=== PATIENT | male | born 1980 | race Caucasian/White ===

== ENCOUNTER → 2017-01-19 | Outpatient (CLI) | payer OTHER ==
[~2017-01-19] MED LIST: CETI10TA84 PO; HYDR-5688 PO; PHEN-876 PO; SERT50TA PO
--- NOTE | 2017-01-19 10:29 | DIAGNOSTIC IMAGING REPORT ---
KUB CLINICAL HISTORY: Nephrolithiasis. COMPARISON STUDY: KUB June 20, 2016. FINDINGS: Pelvic calcifications are unchanged and likely reflect phleboliths. No urinary calculi are identified although the right renal shadow is partially obscured by stool. Bowel gas pattern is normal. IMPRESSION: No urinary calculi identified. Right renal shadow partially obscured by stool. Electronically signed by: Obey David M.D. 01/19/2017 10:28 AM Dictated Date/Time: 01/19/2017 10:26 AM
== END | disposition home or self-care (01) ==
LOC: C.RAD 10:00
PROVIDERS: ATTEND Nurse Practitioner Family
DX: N20.0 Calculus of kidney (principal)

== ENCOUNTER 2017-06-12 13:48 | Observation (INO) | payer OTHER ==
[~2017-06-12] VITALS: Ht 172.7 cm; Wt 86.1 kg
[~2017-06-12 13:48] MED LIST changes: -CETI10TA84 PO; -HYDR-5688 PO; -PHEN-876 PO
[2017-06-12] MEDS ORDERED: SODIUM CHLORIDE 0.9% 1000ML 300 ML IV STA (14:26)
[2017-06-12] MEDS ORDERED: MoRPHine SULFATE 4 MG/ML 1 ML CARP\\VIAL IV STA (14:39)
[2017-06-12] MEDS ORDERED: CETI10TA84 PO (14:51)
[2017-06-12 15:12] LABS: URINE APPEARANCE CLEAR (CLEAR); URINE BILIRUBIN NEG (NEG); URINE COLOR YELLOW; URINE EPITHELIAL CELL AUTO 0-5 /lpf (0-5); URINE NITRITE NEG (NEG); URINE SPECIFIC GRAVITY 1.027 (1.000-1.030); UROBILINOGEN NEG (NEG); ZZUR CULT IF INDIC CLEAN CATCH NO
[2017-06-12 15:16] LABS: BASO % 0.2 %; BASO ABS # 0.02 K/uL (0-0.2); COMPLETE YES; EOS % 0.4 %; HEMATOCRIT 43.9 % (42-52); IG% 0.3 %; LYMPH % 23.4 %; LYMPH ABS # 2.31 K/uL (1.2-3.4); MEAN CELL VOLUME 93.6 fL (80-100); MEAN CORPUSCULAR HGB CONC 37.4 g/dl (32-36); MEAN PLATELET VOLUME 9.2 fL (7.4-10.4); MONO % 7.7 %; PLATELET COUNT 177 K/uL (130-400); RED BLOOD COUNT 4.69 M/uL (4.7-6.1); WHITE BLOOD COUNT 9.87 K/uL (4.8-10.8)
[2017-06-12 15:34] LABS: MANUAL MICROSCOPIC REQUIRED? NO; REVIEW REQ? YES
[2017-06-12 15:34] LABS: CREATININE 0.9 mg/dl (0.60-1.40)
[2017-06-12 15:35] LABS: BUN/CREATININE RATIO 10.6 (10-20); CALCIUM 8.9 mg/dl (8.5-10.1); POTASSIUM 3.6 mmol/L (3.5-5.1)
[2017-06-12 15:37] LABS: ALB/GLOB RATIO 1.1 (0.9-2)
--- NOTE | 2017-06-12 16:21 | EMERGENCY ROOM VISIT NOTE ---
History First contact with patient: 14:30 Chief Complaint: ABDOMINAL PAIN Stated Complaint: SHARP PAIN IN LOWER AB AREA;BLOOD IN STOOL Nursing Triage Summary: "Wicked, wicked stomach pains. Im unable to sleep. Dark blood coming out in my stool." Been going on for 4 months, "tried to take care of it myself." Denies lightheadedness or dizziness. History of Present Illness The patient is a 37 year old male who presents to the Emergency Room with complaints of intermittent sharp abdominal pains and intermittent diarrhea for the past 4 months. Patient states for the past 2 days he has had constant sharp pains in his lower abdomen and has had multiple bowel movements with red blood mixed in. He states he does not have a PCP, so has not been evaluated for this. He states that he had a severe bout of abdominal pain while he was at work today and his coworkers told him he should go to the ER. Patient states he has been taking Zantac for heartburn and stomach pains for the past several weeks. He has not tried any other medications for his pain or diarrhea. He does report family history of IBD and his sister has Crohn's disease. He denies any fevers or chills, nausea, vomiting, chest pain, shortness of breath, dizziness or syncope, hematemesis, constipation, dysuria or urinary frequency, hematuria, or rash. Review of Systems A complete 10 point review of systems was reviewed with the patient with pertinent positives and negatives as per history of present illness. All else were negative. Past Medical/Surgical History Medical Problems: (1) Appendicitis (2) Kidney stones Family History Diabetes mellitus Hypertension Kidney disease Seizures Social History Smoking Status: Never Smoker Alcohol Use: occasionally Housing Status: lives alone Occupation Status: employed Current/Historical Medications Scheduled Cetirizine (Zyrtec), 10 MG PO DAILY Allergies Coded Allergies: Penicillins (Unverified Allergy, Unknown, hives, 06/12/17) Physical Exam Vital Signs Date Time Temp Pulse Resp B/P (MAP) Pulse Ox O2 Delivery O2 Flow Rate FiO2 06/12/17 22:55 82 17 147/82 100 Nasal Cannula 2 06/12/17 22:45 79 14 151/90 100 Oxymask 10 06/12/17 22:35 102 16 171/76 99 Oxymask 10 06/12/17 22:26 36.7 95 18 160/83 97 Oxymask 10 06/12/17 20:39 77 20 126/76 99 06/12/17 18:42 80 20 135/68 100 06/12/17 15:16 94 18 139/77 98 Room Air 06/12/17 13:51 36.5 81 16 157/85 97 Room Air Physical Exam CONSTITUTIONAL: No acute distress. Mildly dehydrated. Poor overall hygiene. Alert and oriented X 4 with normal affect. HEENT: Normocephalic, atraumatic. Pupils equal, round and reactive to light, EOMI. TMs normal. Pharynx normal. Dry mucous membranes. NECK: Supple, full active range of motion without discomfort. RESPIRATORY: Clear to auscultation bilaterally with no wheezing, crackles, rhonchi or stridor. Equal expansion bilaterally. CARDIOVASCULAR: Regular rate and rhythm with no murmurs, rubs or gallops. Normal peripheral perfusion. No edema. GASTROINTESTINAL: Diffuse tenderness in the lower quadrants of the abdomen, most tender in the RLQ with some guarding, but no rebound tenderness. Upper abdomen is nontender. Soft, nondistended. Bowel sounds present in all quadrants. RAY reveals no rectal mass, hemorrhoids, fissures, and guaiac negative stool. Nurse was present for rectal exam. MUSCULOSKELETAL: Full range of motion of all joints without discomfort. INTEGUMENTARY: No rash or other significant dermatologic conditions noted. NEUROLOGIC: Cranial nerves II-XII grossly intact. No focal neurologic deficits noted. Medical Decision & Procedures ER Provider Diagnostic Interpretation: CT OF THE ABDOMEN AND PELVIS WITH CONTRAST CLINICAL HISTORY: Abdominal pain, blood in stool. Diarrhea. Family history of inflammatory bowel disease. COMPARISON STUDY: CT of the abdomen and pelvis May 30, 2016 and KUB January 19, 2017. TECHNIQUE: Following IV administration of 93 mL of Optiray-320, axial images of the abdomen and pelvis were obtained from the lung bases to the proximal femurs. Images were reviewed in the axial, sagittal, and coronal planes. IV contrast was administered without complication. A dose lowering technique was utilized adhering to the principles of ALARA. Oral contrast was administered. CT DOSE: 847.89 mGycm FINDINGS: The liver, spleen, adrenal glands and pancreas are normal. There are no several water attenuation renal lesions reflect cysts. The largest is a 1.4 cm lesion arising from the lower pole of the left kidney. This may have minimal peripheral layering calcification. There are numerous subcentimeter renal lesions which are too small to characterize. The caliber and wall thickness of small and large bowel are normal. The terminal ileum is normal. There is mild periappendiceal infiltration and moderate appendiceal wall thickening. There is no free air or abscess. Oral contrast fills the proximal to mid aspect of the appendix. There is no evidence for a bowel obstruction. There is no lymphadenopathy. No suspicious skeletal abnormalities are present. IMPRESSION: 1. Findings consistent with acute appendicitis. No free air or abscess. 2. Several renal cysts and numerous subcentimeter renal lesions which are too small to characterize. Laboratory Results 06/12/17 15:04 Red Blood Count 4.69, Mean Corpuscular Volume 93.6, Mean Corpuscular Hemoglobin 35.0, Mean Corpuscular Hemoglobin Concent 37.4, Mean Platelet Volume 9.2, Neutrophils (%) (Auto) 68.0, Lymphocytes (%) (Auto) 23.4, Monocytes (%) (Auto) 7.7, Eosinophils (%) (Auto) 0.4, Basophils (%) (Auto) 0.2, Neutrophils # (Auto) 6.71, Lymphocytes # (Auto) 2.31, Monocytes # (Auto) 0.76, Eosinophils # (Auto) 0.04, Basophils # (Auto) 0.02 06/12/17 15:04 Test 06/12/17 14:20 06/12/17 15:04 Urine Color YELLOW Urine Appearance CLEAR (CLEAR) Urine pH 6.0 (4.5-7.5) Urine Specific [place] 1.027 (1.000-1.030) Urine Protein NEG (NEG) Urine Glucose (UA) NEG (NEG) Urine Ketones NEG (NEG) Urine Occult Blood 1+ (NEG) Urine Nitrite NEG (NEG) Urine Bilirubin NEG (NEG) Urine Urobilinogen NEG (NEG) Urine Leukocyte Esterase NEG (NEG) Urine WBC (Auto) 0 /hpf (0-5) Urine RBC (Auto) 0-4 /hpf (0-4) Urine Hyaline Casts (Auto) 1-5 /lpf (0-5) Urine Epithelial Cells (Auto) 0-5 /lpf (0-5) Urine Bacteria (Auto) NEG (NEG) Urine Crystals CALCIUM OXALATE (NONE White Blood Count 9.87 K/uL (4.8-10.8) Red Blood Count 4.69 M/uL (4.7-6.1) Hemoglobin 16.4 g/dL (14.0-18.0) Hematocrit 43.9 % (42-52) Mean Corpuscular Volume 93.6 fL (80-100) Mean Corpuscular Hemoglobin 35.0 pg (25-34) Mean Corpuscular Hemoglobin Concent 37.4 g/dl (32-36) Platelet Count 177 K/uL (130-400) Mean Platelet Volume 9.2 fL (7.4-10.4) Neutrophils (%) (Auto) 68.0 % Lymphocytes (%) (Auto) 23.4 % Monocytes (%) (Auto) 7.7 % Eosinophils (%) (Auto) 0.4 % Basophils (%) (Auto) 0.2 % Neutrophils # (Auto) 6.71 K/uL (1.4-6.5) Lymphocytes # (Auto) 2.31 K/uL (1.2-3.4) Monocytes # (Auto) 0.76 K/uL (0.11-0.59) Eosinophils # (Auto) 0.04 K/uL (0-0.5) Basophils # (Auto) 0.02 K/uL (0-0.2) RDW Standard Deviation 41.6 fL (36.4-46.3) RDW Coefficient of Variation 12.3 % (11.5-14.5) Immature Granulocyte % (Auto) 0.3 % Immature Granulocyte # (Auto) 0.03 K/uL (0.00-0.02) Erythrocyte Sedimentation Rate 4 mm/hr (0-14) Anion Gap 5.0 mmol/L (3-11) Est Creatinine Clear Calc Drug Dose 121.1 ml/min Estimated GFR () 126.9 Estimated GFR (Non- 109.5 BUN/Creatinine Ratio 10.6 (10-20) Calcium Level 8.9 mg/dl (8.5-10.1) Total Bilirubin 0.7 mg/dl (0.2-1) Aspartate Amino Transf (AST/SGOT) 33 U/L (15-37) Alanine Aminotransferase (ALT/SGPT) 51 U/L (12-78) Alkaline Phosphatase 127 U/L (45-117) C-Reactive Protein 1.27 mg/dl (0-0.29) Total Protein 7.7 gm/dl (6.4-8.2) Albumin 4.0 gm/dl (3.4-5.0) Globulin 3.7 gm/dl (2.5-4.0) Albumin/Globulin Ratio 1.1 (0.9-2) Lipase 161 U/L (73-393) Medications Administered Medications (Trade) Dose Ordered Sig/Nicole Route Start Time Stop Time Status Last Admin Dose Admin Sodium Chloride 300 ml @ 999 mls/hr Q19M STAT IV 06/12/17 14:26 06/12/17 14:44 DC 06/12/17 15:12 999 MLS/HR Morphine Sulfate (MoRPHine SULFATE INJ) 4 mg NOW STAT IV 06/12/17 14:39 06/12/17 14:43 DC 06/12/17 15:12 4 MG Bupivacaine HCl/ Epinephrine Bitart (Sensorcaine/ Epinephrine 0.5% Mpf 1:200,000) 30 ml STK-MED ONCE .ROUTE 06/12/17 20:24 06/12/17 20:25 DC 06/12/17 22:00 20 ML Meperidine HCl (Demerol Inj) 50 mg STK-MED ONCE .ROUTE 06/12/17 22:34 06/12/17 22:35 DC 06/12/17 22:36 25 MG Fentanyl Citrate (Fentanyl Inj) 100 mcg STK-MED ONCE .ROUTE 06/12/17 22:47 06/12/17 22:48 DC 06/12/17 22:52 0.25 MCG Medical Decision CC: Patient presenting with complaint of abdominal pain and bloody stools Interpretation of Labs: No leukocytosis but elevated neutrophil count, no anemia , no significant left-sided normalities, normal renal function, normal liver enzymes and lipase, mildly elevated CRP. No UTI. Differential Diagnosis: Includes, but not limited to gastroenteritis, gastritis , cholecystitis, appendicitis, inflammatory bowel disease, infectious colitis, IBS, dehydration, GI bleed, among others. Medication Reconciliation: I attest that I have personally reviewed the patient' s current medication list. Vital signs review: I reviewed the patient's vital signs and interpret them as follows: T: Afebrile; BP: Hypertensive; HR: Within normal limits; RR: Within normal limits; Pulse Ox: Within normal limits on room air. Blood pressure screening: The patient was found to have an elevated blood pressure and was referred to their primary doctor for recheck and further treatment. Summary: Patient was evaluated at bedside, history of physical exam performed. Patient is alert and in no acute distress, nontoxic appearing, resting comfortably in the stretcher. Patient has diffuse lower abdominal tenderness on exam, most significantly in the right lower quadrant with some guarding. Digital rectal exam did not reveal any areas of tenderness or hemorrhoids, and was negative for occult blood. Orders were placed at bedside for labs including inflammatory markers to evaluate for IBD, UA, IV fluids for hydration, IV morphine for pain, CT abdomen and pelvis with contrast to evaluate for appendicitis, colitis, or other infectious etiology. Patient discussed with Dr. Britt, who agrees with my assessment and plan. Labs reviewed as above, mild neutrophilia and elevated CRP, no other significant abnormalities. CT abdomen/pelvis with findings positive for acute appendicitis. He has been NPO since 12 PM with exception of oral contrast. I discussed on the phone with Dr. Tenorio, Gen. surgery, regarding the patient' s finding of acute appendicitis. He agrees to evaluate the patient for possible surgery today. Patient reassessed multiple times throughout ED stay, he reports that his pain is improved after the morphine and he appears comfortable. Patient and his father were updated on all results and plan for admission and probable surgery for appendicitis. Patient verbalized understanding and is agreeable to this plan. Patient was stable at time of admission. Impression Primary Impression: Appendicitis Departure Information Dispostion Admitted as an inpatient Condition GOOD Referrals No Doctor, Assigned (PCP) Patient Instructions My [facility] Problem Qualifiers Primary Impression: Appendicitis Appendicitis type: acute appendicitis Acute appendicitis type: unspecified acute appendicitis type Qualified Codes: K35.80 - Unspecified acute appendicitis
[2017-06-12] MEDS ORDERED: OPTIRAY 320 IV PRN (16:30)
--- NOTE | 2017-06-12 17:43 | DIAGNOSTIC IMAGING REPORT ---
CT OF THE ABDOMEN AND PELVIS WITH CONTRAST CLINICAL HISTORY: Abdominal pain, blood in stool. Diarrhea. Family history of inflammatory bowel disease. COMPARISON STUDY: CT of the abdomen and pelvis May 30, 2016 and KUB January 19, 2017. TECHNIQUE: Following IV administration of 93 mL of Optiray-320, axial images of the abdomen and pelvis were obtained from the lung bases to the proximal femurs. Images were reviewed in the axial, sagittal, and coronal planes. IV contrast was administered without complication. A dose lowering technique was utilized adhering to the principles of ALARA. Oral contrast was administered. CT DOSE: 847.89 mGycm FINDINGS: The liver, spleen, adrenal glands and pancreas are normal. There are no several water attenuation renal lesions reflect cysts. The largest is a 1.4 cm lesion arising from the lower pole of the left kidney. This may have minimal peripheral layering calcification. There are numerous subcentimeter renal lesions which are too small to characterize. The caliber and wall thickness of small and large bowel are normal. The terminal ileum is normal. There is mild periappendiceal infiltration and moderate appendiceal wall thickening. There is no free air or abscess. Oral contrast fills the proximal to mid aspect of the appendix. There is no evidence for a bowel obstruction. There is no lymphadenopathy. No suspicious skeletal abnormalities are present. IMPRESSION: 1. Findings consistent with acute appendicitis. No free air or abscess. 2. Several renal cysts and numerous subcentimeter renal lesions which are too small to characterize. Electronically signed by: Obey David M.D. 06/12/2017 5:42 PM Dictated Date/Time: 06/12/2017 5:36 PM
--- NOTE | 2017-06-12 19:44 | History and Physical ---
History & Physical Date Jun 12, 2017. History of Present Illness The patient is a 37 year old male with complaints of 2-3 days of worsening lower abdominal pain. mild nausea. also c/o increased bm's. 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 +rebound) Neurologic/Psych: alert, oriented x 3, + pertinent finding (mild MR) Plan of Treatment ct scan c/w acute appendicitis discussed with pt/father options discussed risks of surgery ( bleeding/infection/dvt/pe/injury to another organ etc..) questions answered will proceed with olivia guan.
[2017-06-12] MEDS ORDERED: BUPIVACAINE/EPINEPHRINE 0.5% MPF 1:200,000 10 ML VIAL ONE (20:24)
[2017-06-12] MEDS ORDERED: MIDAZOLAM HCL 1 MG/ML 2ML VIAL ONE (20:28)
[2017-06-12] MEDS ORDERED: FENTANYL CITRATE INJ 50 MCG/1 ML 2 ML VIAL ONE ×2 (20:28→22:47)
[2017-06-12] MEDS ORDERED: ONDANSETRON INJ 2 MG/ML 2 ML VIAL IV PRN ×2 (20:45→22:30)
[2017-06-12] MEDS ORDERED: ATROPINE SULFATE 0.1 MG/ML 5ML SYR IV PRN (20:45)
[2017-06-12] MEDS ORDERED: EpHEDrine SULFATE INJ 50 MG/ML AMP IV PRN (20:45)
[2017-06-12] MEDS ORDERED: FENTANYL CITRATE INJ 50 MCG/1 ML 2 ML VIAL IV PRN (20:45)
[2017-06-12] MEDS ORDERED: HYDROmorphone INJ 1 MG/ML SYR IV PRN (20:45)
[2017-06-12] MEDS ORDERED: SUCCINYLCHOLINE 100MG/5ML SYR IV ONE (21:44)
[2017-06-12] MEDS ORDERED: LIDOCAINE HCL 2% 2 ML VIAL (20MG/ML) ONE (21:44)
[2017-06-12] MEDS ORDERED: PROPOFOL IV EMULSION 10 MG/ML 20 ML VIAL IV ONE (21:44)
[2017-06-12] MEDS ORDERED: DEXAMETHASONE SOD INJ 4 MG/ML VIAL ONE (21:54)
[2017-06-12] MEDS ORDERED: ONDANSETRON INJ 2 MG/ML 2 ML VIAL ONE (21:54)
[2017-06-12] MEDS ORDERED: ROCURONIUM BROMIDE 10 MG/ML 5 ML VIAL IV ONE (21:55)
[2017-06-12] MEDS ORDERED: GLYCOPYRROLATE INJ 0.2 MG/ML VIAL ONE (21:56)
[2017-06-12] MEDS ORDERED: NEOSTIGMINE METHYLSULFATE 5 MG/5 ML SYR ONE (21:56)
--- NOTE | 2017-06-12 22:19 | [facility] Operative Report ---
Operative Report Operative Date Jun 12, 2017. Pre-Operative Diagnosis Acute Appendicitis Post-Operative Diagnosis Acute Appendicitis; mesenteric cyst Procedure(s) Performed Laparoscopic Appendectomy, Excision of Messenteric Cyst Surgeon Dr. Tenorio Estimated Blood Loss 10ML Findings acutely inflammed appendix; mesenteric cyst Specimens A. Appendix B. Messenteric Cyst Anesthesia get Disposition Recovery Room / PACU Description of Procedure After informed consent was obtained the patient was taken to the operating room and placed in supine position with a left arm tucked. After successful intubation the abdomen was shaved and sterilely prepped and draped in usual fashion. We began with an infraumbilical incision with 11 blade scalpel and carried down through the soft tissues and electrocautery. Anterior rectus fascia was opened using electrocautery and 2 #0 Vicryl stay sutures were placed. Peritoneum was entered using blunt finger penetration and a finger sweep was performed. A 12 mm Sanderson trocar was placed and the abdomen was insufflated to 20 mmHg. the laparoscope was inserted and the abdomen was examined in 360. A suprapubic 5 mm port and a left lower quadrant 12 mm port were placed under direct vision. The patient was placed in a Trendelenburg position and slightly airplaned to the left. We explored the abdomen. 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 Also when we looked in the right lower quadrant we immediately noted an inflamed appendix. The remainder of the abdomen showed normal anatomy otherwise. I began by dissecting free the appendix using blunt dissection and sharp scissor lysis. I Used a [place] dissector to create a small window in the meso-appendix at its base with the cecum. A PERRY Pederson cartridge was used to transect the appendix at its base. After freeing up the meso-appendix I used 2 additional 60 mm pederson cartridges to transect the meso- appendix. It was placed into an Endo Catch bag. I did grab the mesenteric cyst as it was pedunculated and easily excised. I grabbed it with a grasper and used cautery scissors to transect its pedicle. It was placed in the bag with the appendix. I did run the terminal ileum back for several feet. I saw no other gross abnormalities throughout the abdomen. The bag was removed and the specimens were sent separately. I did irrigate the pelvis as well as the right lower quadrant. There was no evidence of purulent fluid or perforation of the appendix. There was adequate hemostasis. We then removed all the trochars and desufflated the abdomen. The fascia of the camera port as well as the left lower quadrant fascia were closed using 0 Vicryl [id number] fashion. Wounds were all irrigated and closed using 4-0 Monocryl. Marcaine was used for postoperative analgesia around the incisions. Skin glue was used as a dressing. The patient was awaken extubated and transferred recovery in stable condition I attest to the content of the Intraoperative Record and any orders documented therein. Any exceptions are noted below.
[2017-06-12] MEDS ORDERED: MoRPHine SULFATE 2 MG/ML CARP IV PRN (22:30)
[2017-06-12] MEDS ORDERED: MoRPHine SULFATE 4 MG/ML 1 ML CARP\\VIAL IV PRN (22:30)
[2017-06-12] MEDS ORDERED: ACETAMINOPHEN IV 100 ML IV PRN (22:30)
[2017-06-12] MEDS ORDERED: IBUPROFEN 600 MG TAB PO PRN (22:30)
[2017-06-12] MEDS ORDERED: HYDROCODONE/ACETAMOPHEN 5/325MG TAB PO PRN ×2 (22:30)
[2017-06-12] MEDS ORDERED: MEPERIDINE HCL 50 MG/ML CARP ONE (22:34)
[2017-06-12] MEDS ORDERED: MEPERIDINE HCL 25 MG/ML CARP IV PRN (22:45)
--- NOTE | 2017-06-12 22:52 | Anesthesiology Progress Note ---
Anesthesia Post Op Note Date & Time Jun 12, 2017 at 22:51 Vital Signs Pain Intensity: 10 Vital Signs Past 12 Hours Date Time Temp Pulse Resp B/P (MAP) Pulse Ox O2 Delivery O2 Flow Rate FiO2 06/12/17 22:26 36.7 95 18 160/83 97 Oxymask 10 06/12/17 20:39 77 20 126/76 99 06/12/17 18:42 80 20 135/68 100 06/12/17 15:16 94 18 139/77 98 Room Air 06/12/17 13:51 36.5 81 16 157/85 97 Room Air Notes Mental Status: alert / awake / arousable, participated in evaluation Pt Amnestic to Procedure: Yes Nausea / Vomiting: adequately controlled Pain: adequately controlled Airway Patency, RR, SpO2: stable & adequate BP & HR: stable & adequate Hydration State: stable & adequate Anesthetic Complications: no major complications apparent
[2017-06-12 23:45] VITALS: BP 117/73; PULSE 95; TEMP 37.1; O2SAT 95; Ht 172.7 cm; Wt 86.1 kg
[2017-06-12] MEDS ORDERED: IV FLUIDS COMPLETED PRN (23:45)
[2017-06-13] VITALS (10 sets, daily range): BP systolic 97–124; BP diastolic 59–76; PULSE 86–104; TEMP 36.6–37.2; O2SAT 92–97
[2017-06-13] MEDS: LACTATED RINGER'S 1000ML 1,000 ML IV SCH ×4 (00:10→20:19)
--- NOTE | 2017-06-13 00:43 | EMERGENCY ROOM VISIT NOTE ---
ED Visit Note First contact with patient: 14:30 HPI: Abd pain x 3 months. PE: AFVSS, NAD NC/AT RRR, no murmurs CTAB Abd soft, with ttp RLQ, no peritoneal signs. Ext: no edema, erythema Neuro: grossly intact Plan: CT + appendicits .Surgery to take to OR. I reviewed the patient's past medical history, medications, and visit nursing notes. I discussed the case with the physician assistant public defender, examined the patient, and agree with the findings and plan as documented in the physician assistants note.
[2017-06-13] MEDS: CIPROFLOXACIN / D5W 400 MG in PREMIXED IN D5W 200 ML IV SCH ×2 (01:34→14:30)
[2017-06-13 07:17] LABS: COMPLETE YES; HEMATOCRIT 40.3 % (42-52); IG% 0.1 %; LYMPH % 12.1 %; LYMPH ABS # 1.01 K/uL (1.2-3.4); MEAN CELL VOLUME 94.4 fL (80-100); MEAN CORPUSCULAR HEMOGLOBIN 34.7 pg (25-34); MEAN CORPUSCULAR HGB CONC 36.7 g/dl (32-36); MEAN PLATELET VOLUME 9.4 fL (7.4-10.4); MONO % 3.2 %; NEUT % 84.6 %; PLATELET COUNT 176 K/uL (130-400); RED BLOOD COUNT 4.27 M/uL (4.7-6.1); WHITE BLOOD COUNT 8.34 K/uL (4.8-10.8)
[2017-06-13 07:54] LABS: CALCIUM 8.7 mg/dl (8.5-10.1); CREATININE 0.84 mg/dl (0.60-1.40); POTASSIUM 4.1 mmol/L (3.5-5.1)
--- NOTE | 2017-06-13 11:30 | Surgery Progress Note ---
Surgery Progress Note Date of Service Jun 13, 2017. Subjective Post OP Day: 1 + feeling well pt feeling ok however had to have elias placed for urinary retention. abdominal pain ok. no n/v. Objective Vital Signs: Date Time Temp Pulse Resp B/P (MAP) Pulse Ox O2 Delivery O2 Flow Rate FiO2 06/13/17 07:24 37.0 87 16 107/66 (80) 93 Room Air 06/13/17 07:05 Room Air 06/13/17 03:11 88 109/64 (79) 06/13/17 02:45 37.1 102 16 109/64 (79) 94 Room Air 06/13/17 01:45 36.7 90 18 124/71 (88) 93 Room Air 06/13/17 00:45 37.0 104 18 97/59 (72) 92 Room Air 06/13/17 00:15 37.2 97 16 107/66 (80) 92 Room Air 06/12/17 23:45 37.1 95 16 117/73 95 Room Air 06/12/17 23:45 95 Room Air 06/12/17 23:45 95 Room Air 06/12/17 23:45 37.1 95 18 117/73 (88) 95 Room Air 06/12/17 23:25 89 16 143/84 100 Nasal Cannula 2 85 06/12/17 23:15 36.7 85 16 145/81 100 Nasal Cannula 2 06/12/17 23:05 79 12 144/89 100 Nasal Cannula 2 06/12/17 22:55 82 17 147/82 100 Nasal Cannula 2 06/12/17 22:45 79 14 151/90 100 Oxymask 10 06/12/17 22:35 102 16 171/76 99 Oxymask 10 06/12/17 22:26 36.7 95 18 160/83 97 Oxymask 10 06/12/17 20:39 77 20 126/76 99 06/12/17 18:42 80 20 135/68 100 06/12/17 15:16 94 18 139/77 98 Room Air 06/12/17 13:51 36.5 81 16 157/85 97 Room Air General Appearance: no apparent distress Respiratory/Chest: no respiratory distress, no accessory muscle use Abdomen: non distended, soft Incision(s): clean, dry, intact Laboratory Results: Results Past 24 Hours Test 06/12/17 14:20 06/12/17 15:04 06/13/17 06:48 Range/Units Urine Color YELLOW Urine Appearance CLEAR CLEAR Urine pH 6.0 4.5-7.5 Urine Specific [place] 1.027 1.000-1.030 Urine Protein NEG NEG Urine Glucose (UA) NEG NEG Urine Ketones NEG NEG Urine Occult Blood 1+ NEG Urine Nitrite NEG NEG Urine Bilirubin NEG NEG Urine Urobilinogen NEG NEG Urine Leukocyte Esterase NEG NEG Urine WBC (Auto) 0 0-5 /hpf Urine RBC (Auto) 0-4 0-4 /hpf Urine Hyaline Casts (Auto) 1-5 0-5 /lpf Urine Epithelial Cells (Auto) 0-5 0-5 /lpf Urine Bacteria (Auto) NEG NEG Urine Crystals CALCIUM OXALATE NONE PRSENT White Blood Count 9.87 8.34 4.8-10.8 K/uL Red Blood Count 4.69 4.27 4.7-6.1 M/uL Hemoglobin 16.4 14.8 14.0-18.0 g/dL Hematocrit 43.9 40.3 42-52 % Mean Corpuscular Volume 93.6 94.4 80-100 fL Mean Corpuscular Hemoglobin 35.0 34.7 25-34 pg Mean Corpuscular Hemoglobin Concent 37.4 36.7 32-36 g/dl Platelet Count 177 176 130-400 K/uL Mean Platelet Volume 9.2 9.4 7.4-10.4 fL Neutrophils (%) (Auto) 68.0 84.6 % Lymphocytes (%) (Auto) 23.4 12.1 % Monocytes (%) (Auto) 7.7 3.2 % Eosinophils (%) (Auto) 0.4 0.0 % Basophils (%) (Auto) 0.2 0.0 % Neutrophils # (Auto) 6.71 7.05 1.4-6.5 K/uL Lymphocytes # (Auto) 2.31 1.01 1.2-3.4 K/uL Monocytes # (Auto) 0.76 0.27 0.11-0.59 K/uL Eosinophils # (Auto) 0.04 0.00 0-0.5 K/uL Basophils # (Auto) 0.02 0.00 0-0.2 K/uL RDW Standard Deviation 41.6 41.7 36.4-46.3 fL RDW Coefficient of Variation 12.3 12.3 11.5-14.5 % Immature Granulocyte % (Auto) 0.3 0.1 % Immature Granulocyte # (Auto) 0.03 0.01 0.00-0.02 K/uL Erythrocyte Sedimentation Rate 4 0-14 mm/hr Sodium Level 139 137 136-145 mmol/L Potassium Level 3.6 4.1 3.5-5.1 mmol/L Chloride Level 105 103 98-107 mmol/L Carbon Dioxide Level 29 29 21-32 mmol/L Anion Gap 5.0 5.0 3-11 mmol/L Blood Urea Nitrogen 10 8 7-18 mg/dl Creatinine 0.90 0.84 0.60-1.40 mg/dl Est Creatinine Clear Calc Drug Dose 121.1 129.8 ml/min Estimated GFR () 126.9 130.6 Estimated GFR (Non- 109.5 112.6 BUN/Creatinine Ratio 10.6 9.0 10-20 Random Glucose 84 117 70-99 mg/dl Calcium Level 8.9 8.7 8.5-10.1 mg/dl Total Bilirubin 0.7 0.2-1 mg/dl Aspartate Amino Transf (AST/SGOT) 33 15-37 U/L Alanine Aminotransferase (ALT/SGPT) 51 12-78 U/L Alkaline Phosphatase 127 45-117 U/L C-Reactive Protein 1.27 0-0.29 mg/dl Total Protein 7.7 6.4-8.2 gm/dl Albumin 4.0 3.4-5.0 gm/dl Globulin 3.7 2.5-4.0 gm/dl Albumin/Globulin Ratio 1.1 0.9-2 Lipase 161 73-393 U/L Assessment & Plan 1. acute appendicitis doing well. slowly advance diet/activity hopeful d/c home tomorrow. 2. urinary retention. elias placed. will try and d/c it tomorrow.
[2017-06-14] MEDS: LACTATED RINGER'S 1000ML 1,000 ML IV SCH ×2 (02:51→08:56)
[2017-06-14 07:30] VITALS: BP 120/70; PULSE 76; TEMP 36.6; O2SAT 95
[2017-06-14 07:45] LABS: BASO % 0.1 %; BASO ABS # 0.01 K/uL (0-0.2); COMPLETE YES; EOS % 0.5 %; HEMATOCRIT 39.4 % (42-52); IG% 0.1 %; LYMPH % 38.5 %; LYMPH ABS # 2.92 K/uL (1.2-3.4); MEAN CELL VOLUME 97.3 fL (80-100); MEAN CORPUSCULAR HEMOGLOBIN 33.1 pg (25-34); MEAN PLATELET VOLUME 9.1 fL (7.4-10.4); MONO % 8.3 %; NEUT % 52.5 %; PLATELET COUNT 155 K/uL (130-400); RED BLOOD COUNT 4.05 M/uL (4.7-6.1); WHITE BLOOD COUNT 7.59 K/uL (4.8-10.8)
[2017-06-14 08:10] VITALS: O2SAT 95
[2017-06-14 08:22] LABS: BUN/CREATININE RATIO 8.6 (10-20); CALCIUM 8.4 mg/dl (8.5-10.1); CREATININE 0.8 mg/dl (0.60-1.40); POTASSIUM 3.6 mmol/L (3.5-5.1)
[2017-06-14] MEDS ORDERED: HYDR-5688 PO (08:38)
--- NOTE | 2017-06-14 08:43 | Discharge Instructions ---
Discharge Instructions Date of Service Jun 14, 2017. Admission Reason for Admission: Appendicitis Discharge Discharge Diagnosis / Problem: laparoscopic appendectomy Discharge Goals Goal(s): Decrease discomfort Activity Recommendations Activity Limitations: as noted below Lifting Limitations: no more than 25 pounds Shower/Bathe: no limitations Driving or Machine Use: resume 3 days after discharge . Instructions / Follow-Up Instructions / Follow-Up Dr. Tenorio in 2 weeks, 07/04 at 10:40 AM, [facility], [address] [place] [address] Call [phone] if you need to reschedule or have any questions. Current Hospital Diet Patient's current hospital diet: Clear Liquid Diet Discharge Diet Recommended Diet: Regular Diet Procedures Procedures Performed: Laparoscopic Appendectomy, Excision of Messenteric Cyst Pending Studies Studies pending at discharge: yes List of pending studies: Pathology Medical Emergencies . Who to Call and When: Medical Emergencies: If at any time you feel your situation is an emergency, please call 911 immediately. . Non-Emergent Contact Non-Emergency issues call your: Surgeon Call Non-Emergent contact if: you have a fever, temperature is above 101.5, your pain is not controlled, wound has increased redness, wound has increased pain, you have any medication questions . "Provider Documentation" section prepared by Lito Amaya. . VTE Core Measure Inpt VTE Proph given/why not?: SCD's [place] Drug Monitoring Program Search Results: no issues identified
--- NOTE | 2017-06-14 08:47 | Surgery Progress Note ---
Surgery Progress Note Date of Service Jun 14, 2017. Subjective Post OP Day: 2 + feeling well, + pain controlled, + diet (clears), No complaints, No nausea Objective Vital Signs: Date Time Temp Pulse Resp B/P (MAP) Pulse Ox O2 Delivery O2 Flow Rate FiO2 06/14/17 08:10 95 Room Air 06/14/17 07:30 36.6 76 18 120/70 (87) 95 Room Air 06/14/17 07:15 Room Air 06/13/17 23:15 36.9 93 16 111/72 (85) 97 Room Air 06/13/17 23:15 Room Air 06/13/17 19:03 36.7 90 18 109/67 (81) 97 Room Air 06/13/17 15:25 Room Air 06/13/17 15:20 36.6 88 18 112/69 (83) 96 Room Air 06/13/17 11:33 37.1 86 16 124/76 (92) 96 Room Air Abdomen: non distended, soft Incision(s): clean, dry Laboratory Results: Results Past 24 Hours Test 06/14/17 07:05 Range/Units White Blood Count 7.59 4.8-10.8 K/uL Red Blood Count 4.05 4.7-6.1 M/uL Hemoglobin 13.4 14.0-18.0 g/dL Hematocrit 39.4 42-52 % Mean Corpuscular Volume 97.3 80-100 fL Mean Corpuscular Hemoglobin 33.1 25-34 pg Mean Corpuscular Hemoglobin Concent 34.0 32-36 g/dl Platelet Count 155 130-400 K/uL Mean Platelet Volume 9.1 7.4-10.4 fL Neutrophils (%) (Auto) 52.5 % Lymphocytes (%) (Auto) 38.5 % Monocytes (%) (Auto) 8.3 % Eosinophils (%) (Auto) 0.5 % Basophils (%) (Auto) 0.1 % Neutrophils # (Auto) 3.98 1.4-6.5 K/uL Lymphocytes # (Auto) 2.92 1.2-3.4 K/uL Monocytes # (Auto) 0.63 0.11-0.59 K/uL Eosinophils # (Auto) 0.04 0-0.5 K/uL Basophils # (Auto) 0.01 0-0.2 K/uL RDW Standard Deviation 44.3 36.4-46.3 fL RDW Coefficient of Variation 12.5 11.5-14.5 % Immature Granulocyte % (Auto) 0.1 % Immature Granulocyte # (Auto) 0.01 0.00-0.02 K/uL Sodium Level 141 136-145 mmol/L Potassium Level 3.6 3.5-5.1 mmol/L Chloride Level 105 98-107 mmol/L Carbon Dioxide Level 31 21-32 mmol/L Anion Gap 5.0 3-11 mmol/L Blood Urea Nitrogen 7 7-18 mg/dl Creatinine 0.80 0.60-1.40 mg/dl Est Creatinine Clear Calc Drug Dose 136.3 ml/min Estimated GFR () 133.2 Estimated GFR (Non- 114.9 BUN/Creatinine Ratio 8.6 10-20 Random Glucose 94 70-99 mg/dl Calcium Level 8.4 8.5-10.1 mg/dl Assessment & Plan s/p lap appy urinary retention advance diet d/c elias home if able to void and tolerates diet
[2017-06-14] MEDS ORDERED: NURSING VERBAL MED ORDER ONE (10:15)
[2017-06-14 11:08] VITALS: BP 120/70; PULSE 76; TEMP 36.6; O2SAT 95
[2017-06-14 11:39] VITALS: BP 132/68; PULSE 79; TEMP 36.7; O2SAT 97
--- NOTE | 2017-06-18 11:47 | DISCHARGE SUMMARY ---
PRIMARY DISCHARGE DIAGNOSES: 1. Acute appendicitis. 2. Mesenteric cyst -- fat necrosis. 3. Urinary retention. PROCEDURE PERFORMED: Laparoscopic appendectomy. HOSPITAL COURSE: The patient is a 37-year-old male who presented to the Emergency Department with 2 days of abdominal pain and nausea. White count was 9000. CT was consistent with appendicitis. He was taken to the operating room that evening for laparoscopic appendectomy. Procedure was well tolerated. He was transferred to the surgical floor. He was unable to void postoperatively. Morales catheter was placed. On day 1, he was tolerating diet and oral analgesics. The catheter was left in until postoperative day 2. Once was removed he was able to void without difficulty. He was stable for discharge at that time. DISCHARGE INSTRUCTIONS: Discharge home. Follow up with Dr. Tenorio in 2 weeks. DISCHARGE MEDICATIONS: [place] 1-2 tablets every 4 hours as needed for pain and resume Zyrtec 10 mg daily.
== END 2017-06-14 12:07 | disposition home or self-care (01) ==
LOC: C.EDB 13:50 → C.MSN 22:23 → ENRESERV 23:14
PROVIDERS: ADMIT Surgery; ATTEND Surgery
DX: K35.80 Unspecified acute appendicitis (principal); K65.4 Sclerosing mesenteritis; R33.9 Retention of urine, unspecified; Z87.442 Personal history of urinary calculi; Z83.3 Family history of diabetes mellitus; Z82.49 Family history of ischemic heart disease and other diseases of the circulatory system; Z84.1 Family history of disorders of kidney and ureter; Z82.0 Family history of epilepsy and other diseases of the nervous system; N28.1 Cyst of kidney, acquired; K21.9 Gastro-esophageal reflux disease without esophagitis; Z86.69 Personal history of other diseases of the nervous system and sense organs; Z83.79 Family history of other diseases of the digestive system

== ENCOUNTER → 2017-07-26 | Outpatient (CLI) | payer OTHER ==
[~2017-07-26] MED LIST changes: +CETI10TA84 PO; +HYDR-5688 PO; -SERT50TA PO
--- NOTE | 2017-07-26 15:57 | DIAGNOSTIC IMAGING REPORT ---
ABD/PELVIS WITHOUT FOR STONE HISTORY: 37 years-old Male FLANK/SUPRAPUBIC PAIN, HX KIDNEY STONES acute left-sided flank pain COMPARISON: CT abdomen and pelvis 06/12/2017 TECHNIQUE: Multiple axial CT images of the abdomen and pelvis were obtained without contrast. A dose lowering technique was used consistent with the principals of ARACELY. FINDINGS: The lung bases are generally clear. No pneumoperitoneum identified. Imaged inferior cardiac chambers are unremarkable. The liver is mildly enlarged and demonstrates mild fatty infiltration. The spleen, pancreas, adrenal glands and gallbladder are unremarkable. Exophytic low attenuating lesion of the posterior aspect inferior pole left kidney is seen, 10 x 9 mm with dependent calcification suggesting complex renal cyst, unchanged. Indeterminate low attenuating lesion of the inferior pole right kidney, 9 mm is also again seen. This may also reflect a cyst however is nonspecific on this single phase study. No renal calculi or obstructive uropathy identified. The ureters and urinary bladder are within normal limits. Prostate is also unremarkable. Abdominal aorta is normal in both course and caliber. No bulky retroperitoneal adenopathy. There is no bowel obstruction. Nonspecific calcifications are seen adjacent to the sigmoid colon, unchanged. The rectosigmoid and descending colon are collapsed as well as the majority of the transverse colon with wall thickening. Prior appendectomy. No ascites. No significant inflammatory stranding. Soft tissues are unremarkable. The bones appear intact. IMPRESSION: 1. The majority of the colon is collapsed with wall thickening suggesting nondistention. A mild colitis however could have a similar appearance. 2. Prior appendectomy. 3. No bowel obstruction. 4. Additional incidental findings as above. The above report was generated using voice recognition software. It may contain grammatical, syntax or spelling errors. Electronically signed by: Brandin Carballo M.D. 07/26/2017 3:55 PM Dictated Date/Time: 07/26/2017 3:44 PM
== END | disposition home or self-care (01) ==
LOC: C.CTS 15:21
PROVIDERS: ATTEND Family Medicine
DX: R10.2 Pelvic and perineal pain (principal); Z87.442 Personal history of urinary calculi; Z90.89 Acquired absence of other organs

== ENCOUNTER 2017-09-05 14:08 | Emergency (ER) | payer OTHER ==
[~2017-09-05 14:08] MED LIST changes: -PHEN-876 PO
[2017-09-05 14:10] VITALS: TEMP 37; Ht 172.7 cm
[2017-09-05] MEDS ORDERED: KETOROLAC TROMETHAMINE 30 MG/ML VIAL IV STA (14:22)
[2017-09-05 14:34] VITALS: O2SAT 98
--- NOTE | 2017-09-05 14:41 | EMERGENCY ROOM VISIT NOTE ---
History Report prepared by Jerod: Taiwo Pastor Under the Supervision of: Dr. Hector Barrett M.D. First contact with patient: 14:17 Chief Complaint: SYNCOPE (NEAR SYNCOPE) Stated Complaint: BLOOD IN URINE, ALMOST PASSED OUT IN X-RAY, FAINT History of Present Illness The patient is a 37 year old male who presents to the Emergency Room with complaints of a near syncopal episode occurring just prior to arrival. He states that his episode occurred while walking shortly before receiving a KUB. He states that his heart was racing and he felt very warm prior to the episode. The patient states that he felt somewhat ill today at work. He had the KUB due to having blood in his urine. He also complains of nausea, burning with urination, penis pain, and fevers. The patient denies vomiting. He finished taking an antibiotic 1.5 months ago for a UTI. He is not on blood thinners. The patient states that he ate breakfast today and has been drinking a lot of water. He rates his current penile pain as a 7/10 in severity. He notes that he has had the problems with urinary burning for " a while". His KUB today showed no evidence for renal or ureteral stones. Source of History: patient Onset: Just prior to arrival Quality: other (near-syncope) Timing: other (episode) Associated Symptoms: + fevers, + nausea, + urinary symptoms (burning with urination), No vomiting Note: Additional symptoms: penis pain. Review of Systems See HPI for pertinent positives & negatives. A total of 10 systems reviewed and were otherwise negative. Past Medical & Surgical Medical Problems: (1) Appendicitis (2) Kidney stones Family History Diabetes mellitus Hypertension Kidney disease Seizures Social History Smoking Status: Never Smoker Alcohol Use: occasionally Housing Status: lives alone Occupation Status: employed Current/Historical Medications Scheduled PRN Phenazopyridine HCl (Pyridium), 200 MG PO TID PRN for Frequency/Burning w/ Urination Allergies Coded Allergies: Penicillins (Unverified Allergy, Unknown, hives, 09/05/17) Physical Exam Vital Signs Date Time Temp Pulse Resp B/P (MAP) Pulse Ox O2 Delivery O2 Flow Rate FiO2 09/05/17 17:54 85 18 131/74 96 09/05/17 16:38 120/85 09/05/17 15:43 90 20 97 09/05/17 15:38 88 20 96 09/05/17 15:23 95 14 98 09/05/17 15:08 90 15 97 09/05/17 15:02 95 133/93 91 128/88 105 123/91 09/05/17 14:58 123/91 09/05/17 14:56 129/88 09/05/17 14:54 133/93 09/05/17 14:53 96 21 97 09/05/17 14:38 97 18 97 09/05/17 14:34 98 Room Air 09/05/17 14:32 87 09/05/17 14:21 140/82 09/05/17 14:10 37.0 96 18 148/85 98 Room Air Physical Exam GENERAL: Patient is in no acute distress. HEENT: No acute trauma, normocephalic atraumatic, mucous membranes moist, no nasal congestion, no scleral icterus. NECK: No stridor, no adenopathy, no meningismus, trachea is midline. LUNGS: Clear to auscultation bilaterally, no wheeze, no rhonchi, breath sounds equal. HEART: Without murmurs gallops or rubs, regular rate and rhythm. ABDOMEN: Soft, nontender, bowel sounds positive, no hernias, no peritonitis. EXTREMITIES: No cyanosis or edema, full range of motion of all the joints without pain or difficulty, no signs for acute trauma. NEUROLOGIC: Oriented x 3, no acute motor or sensory deficits, no focal weakness. SKIN: No rash, no jaundice, no diaphoresis. Medical Decision & Procedures ER Provider Diagnostic Interpretation: Radiology results as stated below per my review and radiologist interpretation: (RENAL)RETROPERITON COMP FINDINGS: The right kidney measures 11.6 x 5.2 x 4.3 cm. Cyst of the interpolar right kidney measures up to 0.9 cm. No right-sided renal calculi, hydronephrosis or focal mass lesion identified. The left kidney measures 12.1 x 5.9 x 5.8 cm. Cyst of the inferior pole left kidney is noted measuring up to 1.2 cm which demonstrated minimal layering calcification seen on comparison CT 07/26/2016 compatible with a mildly complex cyst. No left-sided renal calculi or hydronephrosis. Urinary bladder is partially collapsed. No ureteral jets documented. IMPRESSION: 1. No renal calculi or hydronephrosis. 2. Bilateral renal cysts redemonstrated. 3. Partial distention of the urinary bladder. The above report was generated using voice recognition software. It may contain grammatical, syntax or spelling errors. Electronically signed by: Brandin Carballo M.D. 09/05/2017 4:34 PM CHEST ONE VIEW PORTABLE FINDINGS: The lungs are clear. Cardiac silhouette is normal in size. No pleural effusions. No pneumothorax. IMPRESSION: No acute process. Electronically signed by: Cleveland Duong M.D. 09/05/2017 2:44 PM Orthostatic vital signs were negative. Laboratory Results 09/05/17 14:35 Red Blood Count 4.95, Mean Corpuscular Volume 94.3, Mean Corpuscular Hemoglobin 34.7, Mean Corpuscular Hemoglobin Concent 36.8, Mean Platelet Volume 9.5, Neutrophils (%) (Auto) 52.2, Lymphocytes (%) (Auto) 39.9, Monocytes (%) (Auto) 7.1, Eosinophils (%) (Auto) 0.4, Basophils (%) (Auto) 0.1, Neutrophils # (Auto) 3.61, Lymphocytes # (Auto) 2.76, Monocytes # (Auto) 0.49, Eosinophils # (Auto) 0.03, Basophils # (Auto) 0.01 09/05/17 14:35 Test 09/05/17 14:35 09/05/17 15:10 09/05/17 16:51 09/05/17 17:00 White Blood Count 6.92 K/uL (4.8-10.8) Red Blood Count 4.95 M/uL (4.7-6.1) Hemoglobin 17.2 g/dL (14.0-18.0) Hematocrit 46.7 % (42-52) Mean Corpuscular Volume 94.3 fL (80-100) Mean Corpuscular Hemoglobin 34.7 pg (25-34) Mean Corpuscular Hemoglobin Concent 36.8 g/dl (32-36) Platelet Count 204 K/uL (130-400) Mean Platelet Volume 9.5 fL (7.4-10.4) Neutrophils (%) (Auto) 52.2 % Lymphocytes (%) (Auto) 39.9 % Monocytes (%) (Auto) 7.1 % Eosinophils (%) (Auto) 0.4 % Basophils (%) (Auto) 0.1 % Neutrophils # (Auto) 3.61 K/uL (1.4-6.5) Lymphocytes # (Auto) 2.76 K/uL (1.2-3.4) Monocytes # (Auto) 0.49 K/uL (0.11-0.59) Eosinophils # (Auto) 0.03 K/uL (0-0.5) Basophils # (Auto) 0.01 K/uL (0-0.2) RDW Standard Deviation 42.0 fL (36.4-46.3) RDW Coefficient of Variation 12.3 % (11.5-14.5) Immature Granulocyte % (Auto) 0.3 % Immature Granulocyte # (Auto) 0.02 K/uL (0.00-0.02) Anion Gap 8.0 mmol/L (3-11) Estimated GFR () 118.9 Estimated GFR (Non- 102.6 BUN/Creatinine Ratio 7.5 (10-20) Calcium Level 9.3 mg/dl (8.5-10.1) Total Bilirubin 0.7 mg/dl (0.2-1) Aspartate Amino Transf (AST/SGOT) 25 U/L (15-37) Alanine Aminotransferase (ALT/SGPT) 33 U/L (12-78) Alkaline Phosphatase 119 U/L (45-117) Total Protein 8.3 gm/dl (6.4-8.2) Albumin 4.4 gm/dl (3.4-5.0) Globulin 3.9 gm/dl (2.5-4.0) Albumin/Globulin Ratio 1.1 (0.9-2) Thyroid Stimulating Hormone (TSH) 1.170 uIu/ml (0.300-4.500) Urine Color ORANGE Urine Appearance SLIGHTLY CLOUDY (CLEAR) Urine pH (4.5-7.5) Urine Specific [place] 1.020 (1.000-1.030) Urine Protein NEG (NEG) Urine Glucose (UA) (NEG) Urine Ketones (NEG) Urine Occult Blood (NEG) Urine Nitrite (NEG) Urine Bilirubin (NEG) Urine Urobilinogen (NEG) Urine Leukocyte Esterase (NEG) Urine RBC 5-10 /hpf (0-4) Urine WBC 1-5 /hpf (0-5) Urine Epithelial Cells 5-10 /lpf (0-5) Urine Bacteria 1+ (NEG) Urine Mucus PRESENT (NONE PRSENT) Bedside Troponin I < 0.030 ng/ml (0-0.045) Laboratory results reviewed by me. Medications Administered Medications (Trade) Dose Ordered Sig/Nicole Route Start Time Stop Time Status Last Admin Dose Admin Ketorolac Tromethamine (Toradol Inj) 30 mg NOW STAT IV 09/05/17 14:22 09/05/17 14:26 DC 09/05/17 15:13 30 MG Phenazopyridine HCl (Pyridium Tab) 200 mg NOW STAT PO 09/05/17 17:34 09/05/17 17:35 DC 09/05/17 17:54 200 MG ECG Indication: syncope Rate (beats per minute): 91 Rhythm: normal sinus Findings: no acute ischemic change, no ectopy ED Course 1418: The patient was evaluated in room B3B. A complete history and physical exam was performed. 1422: Ordered Toradol Inj 30 mg IV. 1734: Ordered Pyridium Tab 200 mg PO. 1740: Reevaluated the patient. Discussed results and discharge instructions: he verbalized understanding and agreement. The patient is ready for discharge. Medical Decision The patient is a 37 year old male who presents to the ED with complaints of a near syncopal episode. Differential diagnoses considered include vasovagal syncope, infection, dehydration, electrolyte imbalance, UTI, prostatitis, renal stone, ureteral stone, and STD. There is no leukocytosis or concerning anemia. No significant electrolyte abnormality, kidney failure or hepatitis. The patient appears to be a euthyroid state. EKG shows a normal sinus rhythm, no ischemia. Cardiac enzyme testing 2 is not consistent with acute cardiac injury. Renal ultrasound shows no hydronephrosis. Chest film shows no mediastinal widening, CHF or pneumothorax. Urinalysis shows possible contamination, urine culture is pending. GC and chlamydia testing is pending. KUB from earlier today does not show evidence for any ureteral stone. The patient was given IV Toradol and oral Pyridium. He has done well here in the ED. He has had no recurrence of his near syncopal symptoms. I spoke to urology. The patient will be seen tomorrow. They recommended Pyridium for the burning for now. At this point, the cause for the entire symptom complex is unclear. It does not appear that antibiotics are indicated currently. We will wait for the urine culture results and the results of the GC and Chlamydia testing. Based on the negative workup, the near syncopal episode was likely vasovagal. Medication Reconcilliation Current Medication List: was personally reviewed by me Blood Pressure Screening Patient's blood pressure: Elevated blood pressure Blood pressure disposition: Elevated BP felt to be situational Consults Time Called: 1725 Consulting Physician: Dr. Barnes -Urology Returned Call: [phone] Discussed the patient's case. Dr. Barnes recommends starting the patient on Pyridium. Impression Primary Impression: Dysuria Additional Impression: Near syncope Scribe Attestation The scribe's documentation has been prepared under my direction and personally reviewed by me in its entirety. I confirm that the note above accurately reflects all work, treatment, procedures, and medical decision making performed by me. Departure Information Dispostion Home / Self-Care Prescriptions Phenazopyridine HCl (Pyridium) 200 Mg Tab 200 MG PO TID Y for Frequency/Burning w/Urination, #12 TAB Prov: Hector Barrett M.D. 09/05/17 Referrals No Doctor, Assigned (PCP) Forms HOME CARE DOCUMENTATION FORM, IMPORTANT VISIT INFORMATION Patient Instructions My [facility] [employer] Additional Instructions pyridium 3x per day for the burning see urology tomorrow as scheduled lab testing and imaging was ok today urine culture and swabs are pending, we will call with any concerns Problem Qualifiers
--- NOTE | 2017-09-05 14:45 | DIAGNOSTIC IMAGING REPORT ---
CHEST ONE VIEW PORTABLE HISTORY: EVALUATE ALTERED MENTAL STATUS/WEAKNESS COMPARISON: None. FINDINGS: The lungs are clear. Cardiac silhouette is normal in size. No pleural effusions. No pneumothorax. IMPRESSION: No acute process. Electronically signed by: Cleveland Duong M.D. 09/05/2017 2:44 PM Dictated Date/Time: 09/05/2017 2:42 PM
[2017-09-05 15:05] LABS: BASO % 0.1 %; BASO ABS # 0.01 K/uL (0-0.2); COMPLETE YES; EOS % 0.4 %; HEMATOCRIT 46.7 % (42-52); IG% 0.3 %; LYMPH % 39.9 %; LYMPH ABS # 2.76 K/uL (1.2-3.4); MEAN CELL VOLUME 94.3 fL (80-100); MEAN CORPUSCULAR HEMOGLOBIN 34.7 pg (25-34); MEAN CORPUSCULAR HGB CONC 36.8 g/dl (32-36); MEAN PLATELET VOLUME 9.5 fL (7.4-10.4); MONO % 7.1 %; NEUT % 52.2 %; PLATELET COUNT 204 K/uL (130-400); RED BLOOD COUNT 4.95 M/uL (4.7-6.1); WHITE BLOOD COUNT 6.92 K/uL (4.8-10.8)
[2017-09-05 15:22] LABS: ALT/SGPT 33 U/L (12-78); BLOOD UREA NITROGEN 7 mg/dl (7-18); BUN/CREATININE RATIO 7.5 (10-20); CALCIUM 9.3 mg/dl (8.5-10.1); CARBON DIOXIDE 28 mmol/L (21-32); CHLORIDE 101 mmol/L (98-107); CREATININE 0.95 mg/dl (0.60-1.40); GLUCOSE 112 mg/dl (70-99); POTASSIUM 3.6 mmol/L (3.5-5.1); SODIUM 137 mmol/L (136-145)
[2017-09-05 15:33] LABS: ALB/GLOB RATIO 1.1 (0.9-2); ALKALINE PHOSPHATASE 119 U/L (45-117); AST/SGOT 25 U/L (15-37)
[2017-09-05 15:42] LABS: MANUAL MICROSCOPIC REQUIRED? YES; REVIEW REQ? NO; URINE APPEARANCE SLIGHTLY CLOUDY (CLEAR); URINE COLOR ORANGE
[2017-09-05 15:43] LABS: SULFASALICYLIC ACID NEG (NEG)
[2017-09-05 15:49] LABS: URINE BACTERIA 1+ (NEG); URINE MUCUS PRESENT (NONE PRSENT)
[2017-09-05 15:50] LABS: ZZUR CULT IF INDIC CLEAN CATCH YES
--- NOTE | 2017-09-05 16:35 | DIAGNOSTIC IMAGING REPORT ---
(RENAL)RETROPERITON COMP HISTORY: 37 years-old Male poss hydro hematuria with near syncopal event COMPARISON: CT abdomen and pelvis 07/26/2017 TECHNIQUE: Multiple real-time sonographic images of the kidneys and urinary bladder were obtained assessing grayscale appearance and color flow. FINDINGS: The right kidney measures 11.6 x 5.2 x 4.3 cm. Cyst of the interpolar right kidney measures up to 0.9 cm. No right-sided renal calculi, hydronephrosis or focal mass lesion identified. The left kidney measures 12.1 x 5.9 x 5.8 cm. Cyst of the inferior pole left kidney is noted measuring up to 1.2 cm which demonstrated minimal layering calcification seen on comparison CT 07/26/2016 compatible with a mildly complex cyst. No left-sided renal calculi or hydronephrosis. Urinary bladder is partially collapsed. No ureteral jets documented. IMPRESSION: 1. No renal calculi or hydronephrosis. 2. Bilateral renal cysts redemonstrated. 3. Partial distention of the urinary bladder. The above report was generated using voice recognition software. It may contain grammatical, syntax or spelling errors. Electronically signed by: Brandin Carballo M.D. 09/05/2017 4:34 PM Dictated Date/Time: 09/05/2017 4:30 PM
[2017-09-05] MEDS ORDERED: PHENAZOPYRIDINE HCL 200 MG TAB PO STA (17:34)
[2017-09-05] MEDS ORDERED: PHEN-876 PO (17:37)
[2017-09-05 17:54] VITALS: BP 131/74; PULSE 85; O2SAT 96
[2017-09-08 02:01] LABS: CHLAMYDIA TRACH RNA*** NOT DETECTED (NOT DETECTED); GC (NEIS GONORRHOEAE)RNA** NOT DETECTED (NOT DETECTED)
== END 2017-09-05 17:56 | disposition home or self-care (01) ==
LOC: C.EDB 14:44
DX: R30.0 Dysuria (principal); R55 Syncope and collapse; Z87.442 Personal history of urinary calculi; Z83.3 Family history of diabetes mellitus; Z82.49 Family history of ischemic heart disease and other diseases of the circulatory system; Z84.1 Family history of disorders of kidney and ureter

== ENCOUNTER → 2017-09-05 | Outpatient (CLI) | payer OTHER ==
[~2017-09-05] MED LIST changes: +PHEN-876 PO
--- NOTE | 2017-09-05 14:25 | DIAGNOSTIC IMAGING REPORT ---
KUB CLINICAL HISTORY: 37 years-old Male presenting with N20.0 Calculus of [id number] Ureteric [id number]. TECHNIQUE: Single supine view of the abdomen was obtained. COMPARISON: 01/19/2017. FINDINGS: Normal bowel gas pattern. No evidence of free intraperitoneal gas, pneumatosis, or portal venous gas. Allowing for bowel gas and stool, no calcifications to suggest nephrolithiasis. Pelvic phleboliths noted. Osseous structures normal. Lung bases clear. IMPRESSION: 1. No evidence of nephrolithiasis. Electronically signed by: Chau Arango M.D. 09/05/2017 2:24 PM Dictated Date/Time: 09/05/2017 2:23 PM
== END | disposition home or self-care (01) ==
LOC: C.RAD 13:39
PROVIDERS: ATTEND Urology
DX: N20.0 Calculus of kidney (principal); N20.1 Calculus of ureter

== ENCOUNTER 2023-04-20 21:52 | Inpatient (IN) ==
[2023-04-20 22:38] LABS: Basophils # (auto) 0.03 K/uL (0-0.2); Basophils % (auto) 0.3 %; Eosinophils # (auto) 0.01 K/uL (0-0.50); Eosinophils % (auto) 0.1 %; Hematocrit (blood only) 49.1 % (42.0-52.0); Hemoglobin 17.8 g/dl (14.0-18.0); Immature Granulocytes # (auto) 0.04 K/uL (0.01-0.20); Immature Granulocytes % (auto) 0.3 %; Lymphocytes % (auto) 17.9 %; Mean Corpuscular Hgb Conc 36.3 g/dL (32.0-36.0); Mean Corpuscular Volume 93.7 fL (80.0-100.0); Mean Platelet Volume 9.2 fL (9.4-12.4); Monocytes # (auto) 0.51 K/uL (0.11-0.59); Monocytes % (auto) 4.3 %; Neutrophils # (auto) 9.07 K/uL (1.40-6.50); Neutrophils % (auto) 77.1 %; Platelet Count 238 K/uL (130-400); RDW Coefficient of Variation 11.7 % (11.5-14.5); RDW Standard Deviation 40.3 fL (36.4-46.3); Red Blood Count 5.24 M/uL (4.70-6.10); White Blood Count 11.76 K/ul (4.8-10.8)
[2023-04-20 22:43] LABS: Appearance Urine Turbid (Clear); Bacteria Urine Automated Negative (Negative); Blood Urine 3+ (Negative); Color Urine Dark Yellow; Epithelial Cell Urine Auto 0-5 /lpf (0-5); Glucose Urine UA Negative (Negative); Ketones Urine Trace (Negative); Leukocyte Esterase Urine Trace (Negative); Nitrite Urine Negative (Negative); Protein Urine 2+ (Negative); Specific Gravity Urine 1.026 (1.000-1.030); Urobilinogen Urine Negative (Negative)
--- NOTE | 2023-04-20 22:46 | XRay Report ---
SINGLE VIEW CHEST CLINICAL HISTORY: Atypical chest pain. FINDINGS: An AP, portable, upright chest radiograph is compared to study dated 09/05/2017. The cardio mediastinal silhouette is unremarkable. The lungs and pleural spaces are clear. No pneumothorax is se en. The bony thorax is grossly intact. IMPRESSION: No active disease in the chest. ACT 112: Negative or not required by law. Electronically signed by: Hector Martínez M.D. 04/20/2023 10:45 PM
[2023-04-20 22:52] LABS: Albumin Globulin Ratio 1.4 (0.9-2); Albumin Level 4.9 gm/dl (3.4-5.0); Bilirubin,Total 0.5 mg/dl (0.2-1.0); Creatinine Clr Calc Pharmacy 82.3 ml/min; Est GFR (African American) 82.4 ml/min; Est GFR (Non-African American) 71.1 ml/min; Globulin 3.5 gm/dl (2.5-4.0); Potassium 4.5 mmol/L (3.5-5.1); Total Protein 8.4 gm/dl (6.0-8.3)
[2023-04-20 22:57] LABS: Bilirubin Urine 1+ (Negative)
[2023-04-20 23:06] LABS: Partial Thromboplastin Ratio 0.9; Partial Thromboplastin Time 24.8 Seconds (21.0-31.0)
[2023-04-20 23:16] LABS: Calcium Oxalate Crystals Urine Present (None Prsent)
[2023-04-20] MEDS ORDERED: MoRPHine SULFATE 4 MG/ML 1 ML CARP\\VIAL IV STA (23:21)
[2023-04-20] MEDS ORDERED: ONDANSETRON INJ 2 MG/ML 2 ML VIAL IV STA (23:21)
[2023-04-20] MEDS ORDERED: KETOROLAC 30 MG/ML VIAL IV ONE (23:21)
[2023-04-20] MEDS ORDERED: SODIUM CHLORIDE 0.9% 1000ML 1,000 ML IV ONE (23:33)
--- NOTE | 2023-04-20 23:33 | Emergency Department Note ---
Impression & Plan Hydronephrosis with renal and ureteral calculus obstruction Admit to the [facility] ED Provider Note NAME: ARELY MARQUEZ AGE: 42 SEX: M ARRIVES VIA: Walk-In INFORMANT: Patient ED PROVIDER(S): Flaca Hinds DO CHIEF COMPLAINT: Left flank pain PLAN: Disposition: Admit to the [facility] Condition: Fair MEDICAL DECISION MAKING: This is a 42-year-old male patient with history of kidney stones who presents to the emergency department with left flank pain. Patient states that the pain started earlier today. The pain is now severe. The patient is tachycardic on presentation. Urinalysis reveals calcium oxalate crystals and red blood cells. Patient was medicated with IV morphine, Zofran and IV Toradol for pain and nausea. CT scan confirms a left-sided 6 mm mid ureteral calculus. Patient has had a previous 6 mm calculus that required lithotripsy and stenting. Laboratory studies revealed mild leukocytosis with a white blood cell count of 11.7. H/H were stable. Glucose was 163. Coagulation studies were normal. Patient had normal chest x-ray and EKG. I discussed the case with the [facility] Hospitalist and they will evaluate for further inpatient care and urology consultation. Triage Nursing notes reviewed and agree with them. Additional history obtained from friends at the bedside Vital Signs: reviewed and unremarkable Differential diagnosis: Pyelonephritis, ureteral colic, obstructive uropathy ER treatment provided: Cardiac monitoring IV normal saline bolus IV morphine IV Zofran IV Toradol Diagnostics interpreted by me: ECG: Normal sinus rhythm at a rate of 100. There is no ST segment elevation or signs of ischemia. There is no ectopy. Cardiac Monitoring: Normal sinus rhythm at 87 Laboratory studies: See below Imaging studies: As per stat rad CT scan of the abdomen/pelvis: See report HPI: 42/M arrives for evaluation of left flank pain. Patient developed some left flank pain earlier in the day that is worsened throughout the evening. He also describes some discomfort in his right upper extremity but states that this could be related to an allover pain that he has been feeling this evening. Patient has since become nauseated secondary to the pain. PAST MEDICAL HISTORY:GERD; previous ureteral stones requiring lithotripsy and stenting SOCIAL HISTORY:See Below HOME MEDICATIONS:See list ALLERGIES:See Below VITALS:See Below PHYSICAL EXAMINATION: HEENT: Head - normocephalic and atraumatic. Pupils are equal, round, and reactive to light. Extraocular eye muscles are intact, and sclera are anicteric. Nose - moist nasal mucosa without discharge. Mouth - moist buccal mucosa. Oropharynx is nonerythematous and there is no tonsillar exudate or edema noted. Neck: Supple; no cervical lymphadenopathy Heart: Regular rate and rhythm. There is a normal S1 and S2 with no murmurs, clicks, or gallops appreciated. Lungs: Clear to auscultation bilaterally with no wheezes, rales, or rhonchi. Abdomen: Soft, moderate left CVA tenderness with palpation. There are no palpable pulsatile masses or hepatosplenomegaly. There is no guarding, rigidity, or rebound noted. Extremities: No evidence of cyanosis, clubbing, or edema. There are easily palpable peripheral pulses. Skin: warm significantly diaphoretic with good turgor and no rashes. ED COURSE: Times/Reassessments: 2340: Patient was evaluated in room before. A complete history and physical was performed. An order was placed for continuous cardiac monitoring. The patient was in a normal sinus rhythm at a rate of 87 An IV lock was initiated and labs were drawn as above. The patient was bolused with a liter of normal saline solution. He was given a dose of IV morphine, IV Toradol and IV Zofran. He will go for CT scan of the abdomen/pelvis. I reviewed the results of the laboratory studies and CT with the patient and his friends. I discussed the case with the [facility] Hospitalist and they will evaluate for further management. Flaca Hinds DO Past Med/Surg History Social History Smoking Status: Never smoker Hx Alcohol Use: Yes Alcohol type: beer and wine Hx Substance Use: Yes Last Used Substance Other:: "several months ago" Preferred Language: Andorran Communication Ability: Effective Fish Bin Tender Required: No Beliefs That Will Affect Care: None Current Living Situation: Alone Other Information That Helps Us Care for You: No Feels Safe at Home: Yes Safety Concerns: Feels Safe At This Time Assistive Devices: None Allergies Allergies Allergy/AdvReac Type Severity Reaction Status Date / Time Penicillins Allergy Intermediate hives Verified 04/21/23 00:15 Home Meds Home Medications Medication Instructions Recorded Confirmed omeprazole 20 mg tablet,delayed 20 mg PO DIRECTED PRN 04/21/23 04/21/23 release HEARTBURN/INDIGESTION Results & Data (ED) Vital Signs Vital Signs - 24 hr 04/20/23 22:06 04/20/23 21:53 04/20/23 23:10 Temperature 36.2 C L Temperature Source Temporal Artery Scan Pulse Rate 111 H 87 Respiratory Rate 18 15 Blood Pressure 125/77 Blood Pressure Mean 93 Pulse Oximetry 98 98 98 Oxygen Delivery Method Room Air Room Air Oxygen Flow Rate 0 Sepsis Recent Fever Within 48 Hours Yes Sepsis New/Unexplained Change in Mental Status No Sepsis Action Taken by Nursing No Action Required 04/20/23 23:09 04/20/23 23:58 04/21/23 00:00 Temperature Temperature Source Pulse Rate 84 91 H 90 Respiratory Rate 14 21 Blood Pressure 133/87 Blood Pressure Mean 102 Pulse Oximetry 95 95 Oxygen Delivery Method Room Air Room Air Oxygen Flow Rate Sepsis Recent Fever Within 48 Hours Sepsis New/Unexplained Change in Mental Status Sepsis Action Taken by Nursing 04/21/23 00:30 04/21/23 01:00 04/21/23 01:30 Temperature Temperature Source Pulse Rate 103 H 100 H 91 H Respiratory Rate 20 16 15 Blood Pressure 141/88 H Blood Pressure Mean 105 Pulse Oximetry 97 94 95 Oxygen Delivery Method Room Air Room Air Room Air Oxygen Flow Rate Sepsis Recent Fever Within 48 Hours Sepsis New/Unexplained Change in Mental Status Sepsis Action Taken by Nursing Laboratory Data 04/20/23 22:20 04/20/23 22:20 Lab Results 04/20/23 04/20/23 04/20/23 Range/Units 22:20 22:20 22:20 WBC 11.76 H (4.8-10.8) K/ul RBC 5.24 (4.70-6.10) M/uL Hgb 17.8 (14.0-18.0) g/dl Hct 49.1 (42.0-52.0) % MCV 93.7 (80.0-100.0) fL MCH 34.0 (25.0-34.0) pg MCHC 36.3 H (32.0-36.0) g/dL RDW Std Deviation 40.3 (36.4-46.3) fL RDW Coeff of Darlin 11.7 (11.5-14.5) % Plt Count 238 (130-400) K/uL MPV 9.2 L (9.4-12.4) fL Immature Gran % (Auto) 0.3 % Neut % (Auto) 77.1 % Lymph % (Auto) 17.9 % [place] % (Auto) 4.3 % Eos % (Auto) 0.1 % Baso % (Auto) 0.3 % Neut # (Auto) 9.07 H (1.40-6.50) K/uL Lymph # (Auto) 2.10 (1.2-3.4) K/uL [place] # (Auto) 0.51 (0.11-0.59) K/uL Eos # (Auto) 0.01 (0-0.50) K/uL Baso # (Auto) 0.03 (0-0.2) K/uL Immature Gran # (Auto) 0.04 (0.01-0.20) K/uL PT 11.0 (9.0-12.0) Seconds INR 1.0 (0.9-1.1) APTT 24.8 (21.0-31.0) Seconds PTT Ratio 0.9 Sodium 138 (136-145) mmol/L Potassium 4.5 (3.5-5.1) mmol/L Chloride 101 (98-107) mmol/L Carbon Dioxide 27 (21-32) mmol/L Anion Gap 10 (3-11) BUN 15 (6-23) mg/dl Creatinine 1.25 (0.6-1.4) mg/dl Est Cr Clr Drug Dosing 82.3 ml/min Est GFR ( Amer) 82.4 ml/min Est GFR (Non-Af Amer) 71.1 ml/min BUN/Creatinine Ratio 12.0 (10-20) Glucose 163 H (70-99(Fasting)) mg/dl Calcium 10.0 (8.6-10.3) mg/dl Total Bilirubin 0.5 (0.2-1.0) mg/dl AST 27 (13-39) U/L ALT 26 (7-52) U/L Alkaline Phosphatase 103 (34-104) U/L Troponin I High Sens 4.0 (0-20) pg/ml Total Protein 8.4 H (6.0-8.3) gm/dl Albumin 4.9 (3.4-5.0) gm/dl Globulin 3.5 (2.5-4.0) gm/dl Albumin/Globulin Ratio 1.4 (0.9-2) Urine Color Urine Appearance (Clear) Urine pH (4.5-7.5) Ur Specific [place] (1.000-1.030) Urine Protein (Negative) Urine Glucose (UA) (Negative) Urine Ketones (Negative) Urine Blood (Negative) Urine Nitrite (Negative) Urine Bilirubin (Negative) Urine Urobilinogen (Negative) Ur Leukocyte Esterase (Negative) Urine WBC (Auto) (0-5) /hpf Urine RBC (Auto) (0-4) /hpf U Hyaline Cast (Auto) (0-5) /lpf U Epithel Cells (Auto) (0-5) /lpf Urine Bacteria (Auto) (Negative) Urine Crystals Calcium Oxalate Crystal (None Prsent) SARS-CoV-2, RNA, NAAT (NEGATIVE) 04/20/23 04/21/23 Range/Units 22:20 01:40 WBC (4.8-10.8) K/ul RBC (4.70-6.10) M/uL Hgb (14.0-18.0) g/dl Hct (42.0-52.0) % MCV (80.0-100.0) fL MCH (25.0-34.0) pg MCHC (32.0-36.0) g/dL RDW Std Deviation (36.4-46.3) fL RDW Coeff of Darlin (11.5-14.5) % Plt Count (130-400) K/uL MPV (9.4-12.4) fL Immature Gran % (Auto) % Neut % (Auto) % Lymph % (Auto) % [place] % (Auto) % Eos % (Auto) % Baso % (Auto) % Neut # (Auto) (1.40-6.50) K/uL Lymph # (Auto) (1.2-3.4) K/uL [place] # (Auto) (0.11-0.59) K/uL Eos # (Auto) (0-0.50) K/uL Baso # (Auto) (0-0.2) K/uL Immature Gran # (Auto) (0.01-0.20) K/uL PT (9.0-12.0) Seconds INR (0.9-1.1) APTT (21.0-31.0) Seconds PTT Ratio Sodium (136-145) mmol/L Potassium (3.5-5.1) mmol/L Chloride (98-107) mmol/L Carbon Dioxide (21-32) mmol/L Anion Gap (3-11) BUN (6-23) mg/dl Creatinine (0.6-1.4) mg/dl Est Cr Clr Drug Dosing ml/min Est GFR ( Amer) ml/min Est GFR (Non-Af Amer) ml/min BUN/Creatinine Ratio (10-20) Glucose (70-99(Fasting)) mg/dl Calcium (8.6-10.3) mg/dl Total Bilirubin (0.2-1.0) mg/dl AST (13-39) U/L ALT (7-52) U/L Alkaline Phosphatase (34-104) U/L Troponin I High Sens (0-20) pg/ml Total Protein (6.0-8.3) gm/dl Albumin (3.4-5.0) gm/dl Globulin (2.5-4.0) gm/dl Albumin/Globulin Ratio (0.9-2) Urine Color Dark Yellow Urine Appearance Turbid A (Clear) Urine pH 5.0 (4.5-7.5) Ur Specific [place] 1.026 (1.000-1.030) Urine Protein 2+ H (Negative) Urine Glucose (UA) Negative (Negative) Urine Ketones Trace H (Negative) Urine Blood 3+ H (Negative) Urine Nitrite Negative (Negative) Urine Bilirubin 1+ H (Negative) Urine Urobilinogen Negative (Negative) Ur Leukocyte Esterase Trace H (Negative) Urine WBC (Auto) 1-5 (0-5) /hpf Urine RBC (Auto) 10-30 H (0-4) /hpf U Hyaline Cast (Auto) 1-5 (0-5) /lpf U Epithel Cells (Auto) 0-5 (0-5) /lpf Urine Bacteria (Auto) Negative (Negative) Urine Crystals Not Reportable Calcium Oxalate Crystal Present A (None Prsent) SARS-CoV-2, RNA, NAAT NEGATIVE (NEGATIVE) Administered Medications Morphine Sulfate (Morphine Sulfate 4 Mg/Ml 1 Ml Carp\\Vial) 4 mg IV Q4H PRN PRN Reason: Pain Stop: 05/05/23 03:45 Last Admin: 04/21/23 09:22 Dose: 4 mg Documented By: [facility] Admin: 04/21/23 04:50 Dose: 4 mg Documented By: CHRISTOPHER Discontinued Medications Diatrizoate Meglumine (Diatrizoate Meglumine 30% 100ml Vial) 50 ml INSTIL ONCE ONE Stop: 04/21/23 13:31 Last Admin: 04/21/23 14:51 Dose: 20 ml Documented By: [id number] Sodium Chloride (Nss 1000ml) 1,000 mls @ 999 mls/hr IV .Q1H1M ONE Stop: 04/21/23 00:33 Last Infusion: 04/21/23 00:57 Dose: 0 mls/hr Documented By: Admin: 04/20/23 23:55 Dose: 999 mls/hr Documented By: CAN Ceftriaxone Sodium (Rocephin) 2,000 mg in 70 mls @ 100 mls/hr IV ONE STA; Protocol Stop: 04/21/23 02:38 Last Infusion: 04/21/23 03:00 Dose: 0 mls/hr Documented By: Admin: 04/21/23 02:17 Dose: 100 mls/hr Documented By: CAN Sodium Chloride (Nss 1000ml) 1,000 mls @ 125 mls/hr IV .Q8H YESICA Stop: 04/21/23 17:59 Last Infusion: 04/21/23 18:45 Dose: 0 mls/hr Documented By: Admin: 04/21/23 10:14 Dose: 125 mls/hr Documented By: [facility] Infusion: 04/21/23 10:14 Dose: 125 mls/hr Documented By: [facility] Admin: 04/21/23 02:17 Dose: 125 mls/hr Documented By: CAN Ketorolac Tromethamine (Ketorolac 30 Mg/Ml Vial) 30 mg IV NOW ONE Stop: 04/20/23 23:22 Last Admin: 04/20/23 23:28 Dose: 30 mg Documented By: CAN Morphine Sulfate (Morphine Sulfate 4 Mg/Ml 1 Ml Carp\\Vial) 4 mg IV NOW STA Stop: 04/20/23 23:22 Last Admin: 04/20/23 23:27 Dose: 4 mg Documented By: ACN Morphine Sulfate (Morphine Sulfate 4 Mg/Ml 1 Ml Carp\\Vial) 4 mg IV NOW STA Stop: 04/21/23 00:48 Last Admin: 04/21/23 00:57 Dose: 4 mg Documented By: CAN Ondansetron HCl (Ondansetron Inj 2 Mg/Ml 2 Ml Vial) 4 mg IV NOW STA Stop: 04/20/23 23:22 Last Admin: 04/20/23 23:28 Dose: 4 mg Documented By: CAN Tamsulosin HCl (Tamsulosin Hcl 0.4 Mg Cap) 0.4 mg PO NOW ONE Stop: 04/21/23 04:16 Last Admin: 04/21/23 04:20 Dose: 0.4 mg Documented By: CHRISTOPHER Imaging Data Radiologist's Impression: Retrograde Pyelogram 04/21/23 00:00 FL retrograde includes kub CLINICAL HISTORY: Left-sided stent placement. COMPARISON STUDY: None. FLUOROSCOPY TIME: 1 minute and 14 seconds FLUOROSCOPY IMAGES: 2 Ka,r: 19.9 mGy FINDINGS: Retrograde opacification of the left renal collecting system followed by placement of a left ureteral stent. The ureteral stent appears in good position. IMPRESSION: Fluoroscopic assistance as above. ACT 112: Negative or not required by law. Electronically signed by: Cleveland Duong M.D. 04/21/2023 3:51 PM Discharge Plan Visit Data Chief Complaint: Shortness of Breath/Dyspnea Stated Complaint: SOB ED Provider: Flaca Hinds Discharge Problem: Hydronephrosis with renal and ureteral calculus obstruction Patient Disposition: Admitted As Inpatient Discharge Instructions Interventions: ED Discharge Assessment Last Done: 04/21/23 03:45
--- NOTE | 2023-04-21 00:10 | CT Scan Report ---
Exam(s): CT ABDOMEN + PELVIS Without Contrast EXAM: CT Abdomen and Pelvis Without Intravenous Contrast CLINICAL HISTORY: Reason for exam: eval for left sided stone. TECHNIQUE: Axial computed tomography images of the abdomen and pelvis without intravenous contrast. CTDI is 26.81 mGy and DLP is 1401.88 mGy-cm. Automated exposure control was utilized for the study. A dose lowering technique was utilized adhering to the principles of ALARA. COMPARISON: No relevant prior studies available. FINDINGS: Lung bases: Unremarkable. No mass. No consolidation. ABDOMEN: Liver: The liver demonstrates a nodular contour which may reflect early morphologic changes cirrhosis. Gallbladder and bile ducts: Unremarkable. No calcified stones. No ductal dilation. Pancreas: Unremarkable. No ductal dilation. Spleen: Unremarkable. No splenomegaly. Adrenals: Unremarkable. No mass. Kidneys and ureters: There is mild to moderate left-sided hydroureteronephrosis extending to a 6 mm mid ureteral calculus (image 159 series 3). Stomach and bowel: Unremarkable. No obstruction. No mucosal thickening. PELVIS: Appendix: The patient is status post appendectomy. Bladder: There is wall thickening of the urinary bladder suggesting chronic inflammatory change. No stones. Reproductive: Unremarkable as visualized. ABDOMEN and PELVIS: Intraperitoneal space: Unremarkable. No free air. No significant fluid collection. Bones/joints: No acute fracture. No dislocation. Soft tissues: Unremarkable. Vasculature: Unremarkable. No abdominal aortic aneurysm. Lymph nodes: Unremarkable. No enlarged lymph nodes. IMPRESSION: There is mild to moderate left-sided hydroureteronephrosis extending to a 6 mm mid ureteral calculus (image 159 series 3). Electronically signed by: Brigido Vicente MD 04/21/23 00:10 AM
[2023-04-21] MEDS ORDERED: MoRPHine SULFATE 4 MG/ML 1 ML CARP\\VIAL IV STA (00:47)
[2023-04-21] MEDS ORDERED: cefTRIAXone SODIUM 2,000 MG/70 ML BAG IV STA (01:57)
--- NOTE | 2023-04-21 02:01 | History & Physical Report ---
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 Left sided nephrolithiasis -CT A/P:There is mild to moderate left-sided hydroureteronephrosis extending to a 6 mm mid ureteral calculus -received morphine ketorolac zofran in ED -WBC 11.76 -UA concerning for infection -ordered tamsulosin -ordered PRN morphine toradol tylenol for pain control -consult placed to urology -ordered ceftriaxone -ordered NSS 2L at 125mls/hr -ordered urine strainer -trend CBC BMP FENa: NPO Code Status: Full DVT PPX: ambulatory Dispo: med/surg Lillian Dash D.O. 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 Patient states pain started yesterday initially thought it was a muscle spasm, radiated from his back to his left side front, also had chills sweats some SOB and nausea. The pain continued to worsen so he came to ED. Received morphine ketorolac and zofran in ED, states his pain is well controlled at this time SOB nausea sweats have resolved. Patient has prior history of right sided kidney stone in 2016. Allergies Allergy/AdvReac Type Severity Reaction Status Date / Time Penicillins Allergy Intermediate hives Verified 04/21/23 00:15 Home Medications Medication Instructions Recorded Confirmed Type omeprazole 20 mg tablet,delayed 20 mg PO DIRECTED PRN 04/21/23 04/21/23 History release HEARTBURN/INDIGESTION Past Med/Surg History Social History Smoking Status: Never smoker Hx Alcohol Use: Yes Alcohol type: beer and wine Hx Substance Use: Yes Last Used Substance Other:: "several months ago" Preferred Language: Togolese Communication Ability: Effective Card Table Attendant Required: No Beliefs That Will Affect Care: None Current Living Situation: Alone Other Information That Helps Us Care for You: No Feels Safe at Home: Yes Safety Concerns: Feels Safe At This Time Assistive Devices: None Physical Exam Constitutional: WD/WN, vitals as above Eyes: PERRL, conjunctivae normal, anicteric sclerae ENMT: external ear and nose normal, oropharynx normal Neck: trachea midline, no thyromegaly Respiratory: normal respiratory effort, lungs clear to auscultation Cardiovascular: RRR, no murmur, no edema Gastrointestinal (Abdomen): Inspection/Auscultation: abdomen normal to inspection Percussion/Palpation: abdomen soft; abdomen nontender Skin: no rashes, warm and dry Results & Data Results & Data Vital Signs (Past 12 Hours) Vital Signs Temp Pulse Resp BP Pulse Ox O2 Del Method O2 Flow Rate 04/21/23 01:00 100 H 16 141/88 H 94 Room Air 04/21/23 00:30 103 H 20 97 Room Air 04/21/23 00:00 90 21 133/87 95 Room Air 04/20/23 23:58 91 H 14 95 Room Air 04/20/23 23:09 84 04/20/23 23:10 87 15 98 Room Air 04/20/23 21:53 98 0 04/20/23 22:06 36.2 C L 111 H 18 125/77 98 Room Air Supervising Physician Co-Signing Physician Notes Patient seen and examined, chart reviewed, case discussed with Dr. Dash and I agree with the assessment and plan as above. Resident Activity Tracking Resident Involvement: Resident Care Provided Care Provided: Adult Hospital Medicine
[2023-04-21] MEDS: SODIUM CHLORIDE 0.9% 1000ML 1,000 ML IV SCH ×2 (02:17→10:14)
[2023-04-21] MEDS ORDERED: ACETAMINOPHEN 325 MG TAB PO PRN (03:46)
[2023-04-21] MEDS ORDERED: ONDANSETRON INJ 2 MG/ML 2 ML VIAL IV PRN ×2 (03:46→12:21)
[2023-04-21] MEDS ORDERED: POLYETHYLENE (MIRALAX) 17 GM PACK PO PRN (03:46)
[2023-04-21] MEDS ORDERED: MoRPHine SULFATE 4 MG/ML 1 ML CARP\\VIAL IV PRN (03:46)
[2023-04-21] MEDS ORDERED: PANTOprazole 40 MG TAB PO PRN (04:05)
[2023-04-21] MEDS ORDERED: TAMSULOSIN HCL 0.4 MG CAP PO ONE (04:15)
[2023-04-21] MEDS: MoRPHine SULFATE 4 MG/ML 1 ML CARP\\VIAL IV PRN ×2 (04:50→09:22)
--- NOTE | 2023-04-21 07:22 | Hospitalist Progress Note ---
Date of Service April 21, 2023 Assessment & Plan (1) Left nephrolithiasis: Plan Jim Anderson is a 42 year-old male with past medical history of learning disability, childhood seizures (last one age 6), who is here for left back pain and was found to have left sided nephrolithiasis. He has history of right sided nephrolithiasis. Left Sided Nephrolithiasis -CT A/P:There is mild to moderate left-sided hydroureteronephrosis extending to a 6 mm mid ureteral calculus -Patient started on Ceftriaxone due to UA concerning for infection. WBC 11.76 -Pain control: Tylenol, Toradol, Morphine ordered PRN for pain control -Urology consulted, appreciate recommendations -Started Tamsulosin -Plan for uteroscopy, possible stent placement -Placed consult for pre sales architect: possible prior calcium oxalate stone. stone to be sent for analysis this time. Dietary to discuss potential dietary modifications FENa: NPO, NSS at 125mL/h Code Status: Full DVT PPX: Ambulatory Dispo: med/surg Admission and Anticipated Discharge Date Admission Date: April 21, 2023 Supervising Physician Co-Signing Physician Notes Resident Physician Supervision Note: I independently interviewed and examined the patient and verified the garcia history and physical, reviewed labs and image studies and agree with resident fi ndings and care plan. Subjective Patient was seen and examined at bedside. No acute events overnight. Patient notes that the morphine helps with his pain but it wears off quickly. The pain is sharp/stabbing at his left lower back. He states that he has not urinated since he was brought up to his room from the ED a few hours ago. He notes that he had a kidney stone a few years ago, is frustrated that this is happening again. States that his last kidney stone was because he ate "too many" Tums. He denies chest pain, shortness of breath, nausea or vomiting. Review of Systems Review of Systems: As per above Physical Exam Constitutional: WD/WN, vitals as above Eyes: no conjunctival abnormality ENMT: External ears and nose normal, moist mucous membranes. Respiratory: normal respiratory effort, lungs clear to auscultation Cardiovascular: Rate/Rhythm: regular rate and regular rhythm Heart Sounds: no murmur Gastrointestinal (Abdomen): Abdomen soft, nondistended. Musculoskeletal: No CVA tenderness on exam. Skin: no rashes, warm and dry Psychiatric: A+Ox3, euthymic affect Results & Data Results & Data Vital Signs (Past 12 Hours) Vital Signs Temp Pulse Pulse Resp BP BP Pulse Ox 04/21/23 07:15 36.6 C 88 16 117/76 96 04/21/23 03:30 36.4 C L 101 H 18 142/87 H 93 04/21/23 03:02 100 H 04/21/23 03:00 98 H 24 121/84 94 04/21/23 02:00 95 H 18 134/95 95 04/21/23 01:30 91 H 15 95 04/21/23 01:00 100 H 16 141/88 H 94 04/21/23 00:30 103 H 20 97 04/21/23 00:00 90 21 133/87 95 04/20/23 23:58 91 H 14 95 04/20/23 23:09 84 04/20/23 23:10 87 15 98 04/20/23 21:53 98 04/20/23 22:06 36.2 C L 111 H 18 125/77 98 O2 Del Method O2 Flow Rate 04/21/23 07:15 Room Air 04/21/23 03:30 Room Air 04/21/23 03:02 04/21/23 03:00 Room Air 04/21/23 02:00 Room Air 04/21/23 01:30 Room Air 04/21/23 01:00 Room Air 04/21/23 00:30 Room Air 04/21/23 00:00 Room Air 04/20/23 23:58 Room Air 04/20/23 23:09 04/20/23 23:10 Room Air 04/20/23 21:53 0 04/20/23 22:06 Room Air Resident Activity Tracking Resident Involvement: Resident Care Provided Care Provided: Adult Hospital Medicine
[2023-04-21 09:18] LABS: BUN Creatinine Ratio 11.9 (10-20); Calcium 8.4 mg/dl (8.6-10.3); Creatinine Clr Calc Pharmacy 80.7 ml/min; Est GFR (African American) 75.7 ml/min; Est GFR (Non-African American) 65.3 ml/min; Potassium 4.3 mmol/L (3.5-5.1)
[2023-04-21] MEDS ORDERED: ePHEDrine sulfate 50 MG/ML AMP IV PRN (12:21)
[2023-04-21] MEDS ORDERED: fentaNYL citrate PF 100 MCG/2 ML VIAL IV PRN (12:21)
[2023-04-21] MEDS ORDERED: ATROPINE SULFATE 0.1 MG/ML 10ML SYR IV PRN (12:21)
--- NOTE | 2023-04-21 12:21 | Anesthesiology Consultation ---
Date of Service April 21, 2023 Assessment & Plan (1) Encounter for pre-operative examination: Chart Review Chart Review: Acceptable Risk for Surgery and Patient NOT seen in Pre Admission Testing Consults Requested none History Surgery Operation Date: 04/21/23 13:00 Proposed Procedures p Ureteral Stent - David Villareal DO Height/Weight Height: 5 ft 8 in Weight: 94.1 kg Allergies Allergy/AdvReac Type Severity Reaction Status Date / Time Penicillins Allergy Intermediate hives Verified 04/21/23 00:15 Medications Home Medications Medication Instructions Recorded Confirmed Last Taken omeprazole 20 mg tablet,delayed 20 mg PO DIRECTED PRN 04/21/23 04/21/23 Unknown release HEARTBURN/INDIGESTION Active Medications Generic Name Dose Route Start Last Admin Trade Name Freq PRN Reason Stop Dose Admin Sodium Chloride 1,000 mls @ 125 mls/hr 04/21/23 02:00 04/21/23 10:14 Nss 1000ml IV 04/21/23 17:59 125 mls/hr .Q8H YESICA Administration Morphine Sulfate 4 mg 04/21/23 04:36 04/21/23 09:22 Morphine Sulfate 4 Mg/Ml 1 Ml Carp\\Vial IV 05/05/23 03:45 4 mg Q4H PRN Administration Pain NPO Date Last Intake of Fluids: 04/21/23 Time Last Intake of Fluids: 12:05 Last Intake of Fluids Comment: sips here and there Date Last Intake of Solids: 04/21/23 Social History Smoking Status: Never smoker Hx Alcohol Use: Yes Alcohol type: beer and wine alcohol intake frequency: holidays/special occasions only Hx Substance Use: Yes substance use type: marijuana Last Used Substance Other:: "several months ago" Physical Exam Vital Signs Last Vital Signs Temp 97.9 F 04/21/23 07:15 Pulse 88 04/21/23 07:15 Resp 16 04/21/23 07:15 BP 117/76 04/21/23 07:15 Pulse Ox 96 04/21/23 07:15 O2 Del Method Room Air 04/21/23 07:15 O2 Flow Rate 0 04/20/23 21:53 Testing Laboratory Results 04/20/23 22:20 04/21/23 08:45 PT 11.0 Seconds (9.0-12.0) 04/20/23 22:20 INR 1.0 (0.9-1.1) 04/20/23 22:20 APTT 24.8 Seconds (21.0-31.0) 04/20/23 22:20 Urine Color Dark Yellow 04/20/23 22:20 Urine Appearance Turbid (Clear) A 04/20/23 22:20 Urine pH 5.0 (4.5-7.5) 04/20/23 22:20 Ur Specific [place] 1.026 (1.000-1.030) 04/20/23 22:20 Urine Protein 2+ (Negative) H 04/20/23 22:20 Urine Glucose (UA) Negative (Negative) 04/20/23 22:20 Urine Ketones Trace (Negative) H 04/20/23 22:20 Urine Nitrite Negative (Negative) 04/20/23 22:20 Ur Leukocyte Esterase Trace (Negative) H 04/20/23 22:20 Urine WBC (Auto) 1-5 /hpf (0-5) 04/20/23 22:20 Urine RBC (Auto) 10-30 /hpf (0-4) H 04/20/23 22:20 U Hyaline Cast (Auto) 1-5 /lpf (0-5) 04/20/23 22:20 U Epithel Cells (Auto) 0-5 /lpf (0-5) 04/20/23 22:20 Urine Bacteria (Auto) Negative (Negative) 04/20/23 22:20 Electrocardiogram Date: 04/20/23 Findings: + NSR @
[2023-04-21] MEDS ORDERED: PROPOFOL IV EMULSION 10 MG/ML 20 ML VIAL IV ONE ×3 (12:38→14:40)
[2023-04-21] MEDS ORDERED: MIDAZOLAM HCL 1 MG/ML 2ML VIAL ONE (12:38)
[2023-04-21] MEDS ORDERED: fentaNYL citrate PF 100 MCG/2 ML VIAL ONE (12:38)
[2023-04-21] MEDS ORDERED: LIDOCAINE 2% 2 ML VIAL/AMP(20MG/ML) INFIL ONE (12:38)
--- NOTE | 2023-04-21 13:10 | Urology Consultation ---
Date of Consultation April 21, 2023 Assessment & Plan (1) Left nephrolithiasis: (2) Kidney stones: Plan Patient with history of stones. Has previously passed stones. This is the larger stone however he has had. Has caused considerable episodes of pain. Has not had any stone sent for analysis. Does have family history of stone disease. No other major changes. Patient has developmental delay since . No major increase in symptoms or delirium. No altered mental status. Patient does live alone and does take care of himself. Hemoglobin was 17.8. White count 11.76. Creatinine 1.34 which is mildly elevated. Patient has complicated medical and surgical history summarized as above. All other labs were reviewed. All vitals were reviewed. Please see HPI and plan section for pertinent values. Patient's imaging was reviewed interpreted by myself. Obstructing stone with hydronephrosis. Spoke with patient in the room and his sister via phone. She is and emergency contact. They are both in agreement with intervention due to the ongoing pain and discomfort. Risks and benefits discussed at length for procedure. These include bleeding, infection, injury to surrounding tissues or organs, and risks associated with anesthesia. Patient states understanding and agrees to proceed. Will sign consent and proceed. Plan for cystoscopy with possible left ureteroscopy and stone treatment possible stent History of Present Illness Attending Physician: Angélica Riley MD History of Present Illness New consultation for patient with stone, discomfort, obstruction, and ill feelings. Patient developed sudden onset of pain into flank going down and radiating into groin and back in waves comes and goes. Can be severe at times. Discussed and reviewed patient's family history for any history of stone disease. Also, discussed patient's medical surgery history especially related to any history of urinary issues or stone disease. Patient was admitted and is undergoing observation. Allergies Allergy/AdvReac Type Severity Reaction Status Date / Time Penicillins Allergy Intermediate hives Verified 04/21/23 00:15 Home Medications Medication Instructions Recorded Confirmed Type omeprazole 20 mg tablet,delayed 20 mg PO DIRECTED PRN 04/21/23 04/21/23 History release HEARTBURN/INDIGESTION Patient History Social History Smoking Status: Never smoker Hx Alcohol Use: Yes Alcohol type: beer and wine Hx Substance Use: Yes Last Used Substance Other:: "several months ago" Preferred Language: Urdu Communication Ability: Effective Consulting Project Director Required: No Beliefs That Will Affect Care: None Current Living Situation: Alone Other Information That Helps Us Care for You: No Feels Safe at Home: Yes Safety Concerns: Feels Safe At This Time Assistive Devices: None Review of Systems Review of Systems: All systems reviewed & are unremarkable except as noted in HPI & below Physical Exam Physical Exam: General: Alert and oriented x 3 in no acute distress. Patient with developmental delay at baseline HEENT: Normocephalic Atraumatic. Inspection normal. Cranial Nerves 2-12 Grossly intact. Nares are clear. Neck is supple. Normal inspection of face. Normal inspection of neck. Neurologic: No deficits on inspection. Baseline for motor function and sensory. Psychologic: Normal affect without acute exacerbation or delirium. Respiratory: Nonlabored. No use of accessory muscles. No tachypnea or dyspnea. Cardiovascular: No tachycardia Skin: [place] and Dry. No rashes or visible lesions. Extremities: Moving without issues. No motor deficits on inspection Lymphatics: No edema Abdomen: Soft Non-distended. No acites. No rebound or guarding. Results & Data Vital Signs (Past 12 Hours) Vital Signs Temp Pulse Pulse Resp BP BP Pulse Ox 04/21/23 07:15 36.6 C 88 16 117/76 96 04/21/23 03:30 36.4 C L 101 H 18 142/87 H 93 04/21/23 03:02 100 H 04/21/23 03:00 98 H 24 121/84 94 04/21/23 02:00 95 H 18 134/95 95 04/21/23 01:30 91 H 15 95 O2 Del Method 04/21/23 07:15 Room Air 04/21/23 03:30 Room Air 04/21/23 03:02 04/21/23 03:00 Room Air 04/21/23 02:00 Room Air 04/21/23 01:30 Room Air PG Care Time/CCT Total # of Minutes Spent Total Time Spent with Patient: Total time spent is greater than 50% in coordination of care (as documented) at patient's floor/unit and/or counseling patient: Coding Level of Care Code 49733 OFFICE CONSULT LVL /55M Diagnoses Left nephrolithiasis N20.0 Kidney stones N20.0
[2023-04-21] MEDS ORDERED: DIATRIZOATE MEGLUMINE 30% 100ML VIAL INSTIL ONE (13:30)
--- NOTE | 2023-04-21 14:38 | Operative Report ---
PG Post Operative Report Pre & Post Diagnosis Operation Date: 04/21/23 13:00 Pre-Op Diagnosis: Left nephrolithiasis, kidney stones Post-Op Diagnosis: Left nephrolithiasis, kidney stones I identified the patient and participated in the time-out.: Yes Procedure Operation Date: 04/21/23 13:00 Actual Procedures p Cystoscopy with Left Retrograde Pyelogram, Ureteroscopy, Laser Lithotripsy, Stone Basket Extraction, and Left Ureteral Stent Insertion(Not Applicable) - David Villareal DO Surgeon David Villareal, II, DO Special Police None Estimated Blood Loss 1 Findings Consistent with Post-Op Diagnosis Stone impacted in proximal ureter. Stone destroyed to dust and small fragments and larger fragments removed. Specimens Stone Fragments Drains 6 Fr x 24 Left Anesthesia Type General Complications none Disposition Disposition: Recovery Room Indications Patient with bothersome stones. Risks and benefits discussed at length. Description of Procedure Patient was consented and brought back to the operating room. Patient was placed under anesthesia in the supine position and moved to the dorsal lithotomy position. Patient was prepped and draped in the regular sterile fashion. A time out was completed. A 30degree Cystoscope was placed into the bladder and the entire bladder was examined. The UO's were identified. The UO was cannulized with a catheter and a retrograde pyelogram was completed. A wire was then placed. The wire would not advance well and would not go past the stone. A second wire was attempted to be placed. This was able to go just past the location of the stone in the proximal ureter. At this point the flexible scope was taken over top of one of the wires and taken up to the area of the stone. The stone was able to be slightly displaced and had been significantly impacted into the wall. The entire ureter had a good degree of inflammation. The stone however would not completely release and the wire had to be manipulated past. After manipulating past the stone the scope was able advance into the renal pelvis. There was a mild amount of blood in the renal pelvis but no major areas of concern or other issues. The scope was slowly removed. However there was some difficulty with moving past the area where the stone had been impacted. At this point, the flexible scope was taken out with the wire remained in place and the rigid ureteroscope was taken into the ureter. The stone was identified. A laser fiber was selected and the stones were pulverized to dust and small fragments. Larger fragments were grasped and removed and sent for analysis. There were numerous areas of irritation within the ureter likely secondary to the stone and manipulation from the scope. No larger fragments were remaining. The entire area was once again examined. No residual large fragments or areas of concern were noted. The scope was slowly removed with the wire left in place. Contrast was placed through the scope for a pyelogram to assist in stent placement. The entire ureter was examined as the scope was slowly removed. No obstructions or other areas of concern were noted. With the wire in place, a 6 Fr Double J stent was placed. It was confirmed with fluoroscopy. With the stent in place, the bladder was emptied. The scope was removed. The patient was cleaned, aroused from anesthesia, and transferred to the pacu in stable condition having tolerated the procedure well with no complications. I was present and participated in all aspects of the procedure. The patient will be monitored in the PACU until transferred. We will plan to maintain the stent for approximately 2 weeks and plan for removal in the office. Stones were sent for analysis I attest to the content of the Intraoperative Record and any orders documented therein. Any exceptions are noted below.
[2023-04-21] MEDS ORDERED: ONDANSETRON INJ 2 MG/ML 2 ML VIAL ONE (14:40)
--- NOTE | 2023-04-21 14:48 | Anesthesiology Progress Note ---
Date of Service April 21, 2023 Anesthesia Post Procedure Vital Signs Vital Signs: Temp Pulse Pulse Pulse Resp BP BP 04/21/23 14:40 88 18 117/74 04/21/23 14:34 97.2 F L 94 H 16 122/80 04/21/23 07:15 97.9 F 88 16 117/76 04/21/23 03:30 97.5 F L 101 H 18 142/87 H 04/21/23 03:02 100 H 04/21/23 03:00 98 H 24 121/84 04/21/23 02:00 95 H 18 134/95 04/21/23 01:30 91 H 15 04/21/23 01:00 100 H 16 141/88 H 04/21/23 00:30 103 H 20 04/21/23 00:00 90 21 133/87 04/20/23 23:58 91 H 14 04/20/23 23:09 84 04/20/23 23:10 87 15 04/20/23 21:53 04/20/23 22:06 97.2 F L 111 H 18 125/77 Pulse Ox O2 Del Method O2 Flow Rate 04/21/23 14:40 98 Room Air 04/21/23 14:34 98 Oxymask 6 04/21/23 07:15 96 Room Air 04/21/23 03:30 93 Room Air 04/21/23 03:02 04/21/23 03:00 94 Room Air 04/21/23 02:00 95 Room Air 04/21/23 01:30 95 Room Air 04/21/23 01:00 94 Room Air 04/21/23 00:30 97 Room Air 04/21/23 00:00 95 Room Air 04/20/23 23:58 95 Room Air 04/20/23 23:09 04/20/23 23:10 98 Room Air 04/20/23 21:53 98 0 04/20/23 22:06 98 Room Air Pain Intensity Left Lower Back: Pain Intensity: 4 Transfer of Care Handoff Completed per policy Notes Mental Status: alert / awake / arousable and participated in evaluation Patient Amnestic to Procedure: Yes Nausea / Vomiting: adequately controlled Pain: adequately controlled Airway Patency, RR, SpO2: stable & adequate BP & HR: stable & adequate Hydration State: stable & adequate Anesthetic Complications: no major complications apparent and Pt Satisfied with anesthetic care
--- NOTE | 2023-04-21 15:52 | Fluoroscopy Report ---
FL retrograde includes kub CLINICAL HISTORY: Left-sided stent placement. COMPARISON STUDY: None. FLUOROSCOPY TIME: 1 minute and 14 seconds FLUOROSCOPY IMAGES: 2 Ka,r: 19.9 mGy FINDINGS: Retrograde opacification of the left renal collecting system followed by placement of a lef t ureteral stent. The ureteral stent appears in good position. IMPRESSION: Fluoroscopic assistance as above. ACT 112: Negative or not required by law. Electronically signed by: Cleveland Duong M.D. 04/21/2023 3:51 PM
[2023-04-21] MEDS: TAMSULOSIN HCL 0.4 MG CAP PO SCH (20:19)
--- NOTE | 2023-04-21 21:36 | Electrocardiogram Report ---
Test Reason : Blood Pressure : / mmHG Vent. Rate : 100 BPM Atrial Rate : 100 BPM P-R Int : 132 ms QRS Dur : 092 ms QT Int : 320 ms P-R-T Axes : 065 049 042 degrees QTc Int : 412 ms Normal sinus rhythm Normal ECG When compared with ECG of 05-SEP-2017 14:29, No significant change was found Confirmed by Frankie Mendoza ([id number]) on 04/21/2023 9:36:20 PM Referred By: REFERRED SELF Confirmed By:Frankie Mendoza
[2023-04-21] MEDS: KETOROLAC TROMETHAMINE 15 MG/ML VIAL IV PRN (23:00)
[2023-04-22] MEDS: cefTRIAXone SODIUM 2,000 MG in DEXTROSE 5% 50 ML IV SCH (01:55)
--- NOTE | 2023-04-22 04:17 | Billing Data ---
Date of Service April 21, 2023 Coding Level of Care Code 22774 INT INP/OBS CARE
[2023-04-22 06:35] LABS: BUN Creatinine Ratio 12.9 (10-20); Calcium 8.4 mg/dl (8.6-10.3); Creatinine Clr Calc Pharmacy 116.3 ml/min; Est GFR (African American) 117.8 ml/min; Est GFR (Non-African American) 101.6 ml/min; Potassium 4.1 mmol/L (3.5-5.1)
[2023-04-22 06:36] LABS: Mean Corpuscular Hemoglobin 34.3 pg (25.0-34.0); Mean Corpuscular Hgb Conc 35.9 g/dL (32.0-36.0); Mean Corpuscular Volume 95.6 fL (80.0-100.0); Mean Platelet Volume 9.4 fL (9.4-12.4); Platelet Count 147 K/uL (130-400); RDW Coefficient of Variation 11.9 % (11.5-14.5); RDW Standard Deviation 42.2 fL (36.4-46.3); Red Blood Count 4.08 M/uL (4.70-6.10); White Blood Count 9.22 K/ul (4.8-10.8)
--- NOTE | 2023-04-22 08:27 | Hospitalist Progress Note ---
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 He has history of right sided nephrolithiasis. Obstructive uropathy/Left Sided Nephrolithiasis -CT A/P:Mild to moderate left-sided hydroureteronephrosis extending to a 6 mm mid ureteral calculus -S/P uteroscopy with left sided stent placement (04/21) -Urology recommendations -Continue Tamsulosin -Required straight cath overnight for decreased urine output, few small obdulia ts. Will start bowel regimen. -Continue monitoring urine output/post void residuals -Started on Ceftriaxone due to UA on admission concerning for infection. WBC 9.2 today. -Multiple areas of irritation in ureter - continue IV abx for now. -Pain control: Tylenol, Toradol, Morphine ordered PRN for pain control -Placed consult for senior account representative: possible prior calcium oxalate stone. stone sent for analysis this time. Dietary discussed potential dietary modifications with patient and his sister yesterday. FENa: Regular Diet Code Status: Full DVT PPX: Ambulatory Dispo: med/surg Admission and Anticipated Discharge Date Admission Date: April 21, 2023 Supervising Physician Co-Signing Physician Notes Resident Physician Supervision Note: I independently interviewed and examined the patient and verified the garcia history and physical, reviewed labs and image studies and agree with resident findings and care plan. Subjective Patient seen and examined at bedside. No acute events overnight. Did have some decreased urine output/void residual and required straight cath. This morning endorses being able to void, although volume is still lower than typical. Notes that pain is much better today. Eating and drinking without issue. Has not had a bowel movement recently. Denies shortness of breath or chest pain. Review of Systems Review of Systems: As per above Physical Exam Constitutional: WD/WN, vitals as above Eyes: no conjunctival abnormality ENMT: External ears and nose normal. Moist mucous membranes. Respiratory: normal respiratory effort, lungs clear to auscultation Cardiovascular: Rate/Rhythm: regular rate and regular rhythm Heart Sounds: no murmur Gastrointestinal (Abdomen): Abdomen soft, nondistended. No masses palpated. Skin: no rashes, warm and dry Psychiatric: A+Ox3, euthymic affect Results & Data Results & Data Vital Signs (Past 12 Hours) Vital Signs Temp Pulse Pulse Resp BP Pulse Ox O2 Del Method 04/22/23 07:13 36.4 C L 85 16 129/78 93 Room Air 04/22/23 02:39 36.8 C 84 18 123/78 96 Room Air 04/21/23 21:44 37 C 85 18 120/73 96 Room Air Resident Activity Tracking Resident Involvement: Resident Care Provided Care Provided: Adult Hospital Medicine
--- NOTE | 2023-04-22 08:54 | Urology Progress Note ---
Date of Service April 22, 2023 Assessment & Plan (1) Left nephrolithiasis: (2) Kidney stones: Plan Status post treatment of left-sided stone with placement stent. Patient had severe obstruction of kidney with stone impacted. Multiple attempts to bypass stone were unsuccessful and the stone had to be destroyed and extracted in order to clear stone. Once returning fragments were able to be removed a wire was able to be placed and the stent was then placed into good position. Ureter had multiple areas of irritation likely from the stone moving down along the ureter. No major episodes of severe pain. No considerable bleeding. Has been straight cathed x2 with small amount of blood clot seen. Otherwise has been voiding small amounts. Discussed extensively hydrating. Discussed work-up moving forward. We will await stone analysis. We will plan to have patient come into the office for approximately 2 weeks for stent removal. In meantime patient will likely need another 1 or 2 days to recover from the procedure as well as return to more normal activity. Encourage patient to ambulate. Would recommend bowel regimen if patient is having issues especially after anesthesia and pain medication. Otherwise we will have patient try to relax try to void on a schedule, and try not to strain. As long as voiding returns to more normal activity we will be able to continue. Likely avoid any medications that can cause potential issues with voiding however can continue Flomax as it would likely help with voiding issues. We will plan to follow-up in 2 to 3 weeks for stent removal Admission and Anticipated Discharge Date Admission Date: April 21, 2023 Subjective Postop from stent placement for obstruction issues. Patient has been tolerating well. Has noticed some frequency and urgency. Has not had severe pain in the back and flank. Does have occasional burning and irritation. No severe episodes or major changes. No new nausea or vomiting. Had tolerated anesthesia without major problems Patient has been having issues with voiding. Has been able to void small amounts but has had a high residual. He is having considerably less pain sounds been treated. Does have some mild bother. Review of Systems Review of Systems: All systems reviewed & are unremarkable except as noted in HPI & below Physical Exam Physical Exam: General: Alert in no acute distress. HEENT: Normocephalic Atraumatic. Inspection normal. Cranial Nerves 2-12 Grossly intact. Normal inspection of face. Normal inspection of neck. Psychologic: Normal affect. Respiratory: Nonlabored. No use of accessory muscles. No tachypnea or dyspnea. Cardiovascular: No tachycardia Skin: [place] and Dry. No rashes or visible lesions. Extremities/Lymphatics: No edema Abdomen: Soft Non-distended. No rebound or guarding. Results & Data Vital Signs (Past 12 Hours) Vital Signs Temp Pulse Pulse Resp BP Pulse Ox O2 Del Method 04/22/23 07:13 36.4 C L 85 16 129/78 93 Room Air 04/22/23 02:39 36.8 C 84 18 123/78 96 Room Air 04/21/23 21:44 37 C 85 18 120/73 96 Room Air PG Care Time/CCT Total # of Minutes Spent Total Time Spent with Patient: Total time spent is greater than 50% in coordination of care (as documented) at patient's floor/unit and/or counseling patient: Coding Level of Care Code 23938 SUB INP/OBS CARE 3/50MIN Diagnoses Left nephrolithiasis N20.0 Kidney stones N20.0
[2023-04-22] MEDS: POLYETHYLENE (MIRALAX) 17 GM PACK PO SCH (11:59)
[2023-04-22] MEDS: DOCUSATE SODIUM/SENNA 50/8.6MG TAB PO SCH (11:59)
[2023-04-22] MEDS: MoRPHine SULFATE 4 MG/ML 1 ML CARP\\VIAL IV PRN (18:44)
[2023-04-22] MEDS: TAMSULOSIN HCL 0.4 MG CAP PO SCH (20:25)
[2023-04-23] MEDS: KETOROLAC TROMETHAMINE 15 MG/ML VIAL IV PRN ×2 (00:35→07:15)
[2023-04-23] MEDS: cefTRIAXone SODIUM 2,000 MG in DEXTROSE 5% 50 ML IV SCH (01:48)
[2023-04-23] MEDS: MoRPHine SULFATE 4 MG/ML 1 ML CARP\\VIAL IV PRN (08:25)
[2023-04-23] MEDS: DOCUSATE SODIUM/SENNA 50/8.6MG TAB PO SCH (08:29)
[2023-04-23] MEDS: POLYETHYLENE (MIRALAX) 17 GM PACK PO SCH (08:29)
[2023-04-23] MEDS ORDERED: PHENAZOPYRIDINE HCL 100 MG TAB PO PRN (10:54)
[2023-04-23] MEDS ORDERED: oxyCODONE HCL IR 5 MG TAB (IMMEDIATE RELEASE) PO STA (11:02)
[2023-04-23] MEDS: ACETAMINOPHEN 500 MG TAB PO SCH ×2 (11:22→14:41)
--- NOTE | 2023-04-23 13:16 | Discharge Summary ---
Date of Service April 23, 2023 Admission HPI Per Admitting Provider 42yo Male with PMH learning disability, childhood seizures last one age 6, here for left back pain found to have left sided nephrolithiasis. Patient states pain started yesterday initially thought it was a muscle spasm, radiated from his back to his left side front, also had chills sweats some SOB and nausea. The pain continued to worsen so he came to ED. Received morphine ketorolac and zofran in ED, states his pain is well controlled at this time SOB nausea sweats have resolved. Patient has prior history of right sided kidney stone in 2016. Admission Exam Per Admitting Provider Constitutional: WD/WN, vitals as above Eyes: PERRL, conjunctivae normal, anicteric sclerae B ENMT: external ear and nose normal, oropharynx normal Neck: trachea midline, no thyromegaly Respiratory: normal respiratory effort, lungs clear to auscultation Cardiovascular: RRR, no murmur, no edema Gastrointestinal (Abdomen): Inspection/Auscultation: abdomen normal to inspection Percussion/Palpation: abdomen soft; abdomen nontender Skin: no rashes, warm and dry Principal Diagnosis left nephrolithiasis s/p stent Discharge Exam Constitutional: well appearing, no acute distress HEENT: normocephalic, no conjunctival injection CV: regular rhythm, regular rate, no murmur, no LE edema Respiratory: Clear to auscultation bilaterally. No rhonchi, wheezes, or crackles. No increased work of breathing GI: soft, nondistended, positive bowel sounds MSK: no gross deformities noted Skin: warm, dry, no rashes Neuro: alert, oriented, no FND noted Discharge Data Allergies Allergy/AdvReac Type Severity Reaction Status Date / Time Penicillins Allergy Intermediate hives Verified 04/21/23 00:15 Consultations 04/21/23 01:35 ED Decision to Admit Stat 04/21/23 03:46 Consult Urology Routine 04/22/23 11:09 Consult Patient Services Routine Procedures Performed Operation Date: 04/21/23 13:00 Actual Procedures s Left Ureteral Stent Insertion(Not Applicable) - David Villareal DO p Cystoscopy, Left Retrograde Pyelogram, Ureteroscopy, Laser Lithotripsy with Stone Basket Extraction,(Not Applicable) - David Villareal DO Ordered Studies 04/20/23 23:20 CT Abd and Pelvis [CT abd pelvis wo con] Stat IMPRESSION: There is mild to moderate left-sided hydroureteronephrosis extending to a 6 mm mid ureteral calculus (image 159 series 3). 04/21/23 FL retrograde includes kub Routine FINDINGS: Retrograde opacification of the left renal collecting system followed by placement of a left ureteral stent. The ureteral stent appears in good position. IMPRESSION: Fluoroscopic assistance as above. Hospital Course (1) Left nephrolithiasis: Plan Pt is a 42 year-old male with past medical history of learning disability, childhood seizures (last one age 6), and right sided nephrolithiasis who presented for left back pain and was found to have left sided nephrolithiasis. A stent was placed 04/21. Left sided nephrolithiasis s/p stent -CT A/P:Mild to moderate left-sided hydroureteronephrosis extending to a 6 mm mid ureteral calculus -Patient started on ceftriaxone upon admission due to concern for infection- continue cefdinir 300 mg BID upon discharge for a total of 5 days -Pain control upon discharge: Tylenol, ibuprofen, and oxycodone 5 mg q6hr PRN (total 10 tabs sent) -Continue Tamsulosin 0.4 mg HS -Stone sent for analysis; recommend further discussion concerning diet with urology/PCP -F/u with uro in 2 weeks for stent removal FENa: Regular Diet Code Status: Full DVT PPX: Ambulatory Dispo: home Total Time Total Time Spent Total Time Spent (In Minutes): <30 Discharge Plan Discharge Items Patient Disposition: Home - Self-Care Reason For Visit: LEFT KIDNEY STONE Discharge Diagnosis: left kidney stone s/p stent Activity: Resume your previous activity Non-emergency contact: Primary Care Provider and Urologist Call non-emergency contact if: you have any medication questions, your symptoms worsen, your pain is not controlled and you have a fever Follow-up/Referrals: David Villareal DO [Physician] - 05/09/23 11:00 am (f/u left stent placement) Sb Phan MD [Primary Care Provider] - 05/01/23 9:05 am (With Crystal Koch ) Diet: Regular Addtl Attending Provider Instructions: You were admitted to the hospital for left flank pain and found to have a left sided kidney stone. A stent was placed to help facilitate passage of the stone. Drinking plenty of water (around 2 L per day) will also help facilitate stone p assage. A discharge summary will be sent to your primary care physician to ensure continuity of care. Please bring this discharge summary with you to your next office appointment so that your provider can review it at that time. Medications: Your medication list has been reviewed and reconciled upon discharge to ensure accuracy and continuity of care. An updated list of all your medications is included with your hospital discharge paperwork. Please review this list closely and make note of any changes to your medications. - You should take 0.4 mg of tamsulosin each night to help with stone passage. - You should also take the antibiotic, cefdinir, twice per day for the next 3 days to complete a total of 5 days of antibiotics. You should start this tomorrow morning. - You may take over the counter medications containing phenazopyridine to help with the burning with urination (such as Azo, etc). - For other pain control, you may use Tylenol 650 mg every 4 hours and ibuprofen 400 mg every 4 hours as needed. - You have also been sent oxycodone 5 mg to be used for severe pain. This can be used every 6 hours as needed. Tylenol and ibuprofen should be used as first lines for pain. Follow up appointments: - Make a follow up appointment with your PCP within the next week. It is very important that you follow up with them shortly after discharge from the hospital. - You will also need to follow up with urology in about 2 weeks for stent removal. - Keep all of your follow up appointments as already scheduled. If you cannot make an appointment, notify your provider. CONTACT YOUR PRIMARY CARE PROVIDER if you experience any of the following: - Difficulty following your treatment plan - Difficulty taking any of your medications CALL 911 OR GO TO THE EMERGENCY DEPARTMENT if you experience any of the following: - Sudden, severe abdominal pain or nausea/vomiting - Severe chest pain or chest pain that radiates to your jaw or arm - Sudden, severe shortness of breath or difficulty breathing Pending Studies at Discharge: No Stand-Alone Forms: My [employer], Smoking Cessation Medications and DC Order Prescriptions: New oxycodone 5 mg tablet 5 mg PO Q6H PRN (Reason: pain) Qty: 10 0RF tamsulosin 0.4 mg Capsule 0.4 mg PO HS 30 Days Qty: 30 0RF cefdinir 300 mg capsule 300 mg PO BID 3 Days Qty: 6 0RF Continued omeprazole 20 mg Tablet,Delayed Release (Dr/Ec) 20 mg PO DIRECTED PRN (Reason: HEARTBURN/INDIGESTION) Discharge Orders: Discharge Order (Routine); Ordered 04/23/23 Ordered By: Lucía Adams Admission Data Admit Date/Time: 04/21/23 01:53 Attending Provider: Chester Jackson Admit Provider: Lillian Dash Primary Care Provider: Sb Phan Other Providers: iKm Valverde ; David Villareal Other Interventions: Discharge Summary Assessment (RN) Last Done: 04/23/23 13:22 Supervising Physician Co-Signing Physician Notes I personally examined the patient and verified all garcia points of history and exam, discussed case, and agree with decision making with Dr Adams feeling better pain controlled, feels up to going home. vitals noted nad heent nc at mmm breathing unlabored no accessory muscles good effort skin no rashes no pallor or icterus neuro no focal deficits ureterolithiasis - stable for home, pain control, outpt f/u, otherwise as above Resident Activity Tracking Resident Involvement: Resident Care Provided Care Provided: Adult Hospital Medicine
--- NOTE | 2023-04-23 18:21 | Billing Data ---
Date of Service April 23, 2023 Coding Level of Care Code 36207 IN/OBS DISCH 30 MIN/LESS
== END 2023-04-23 16:34 | disposition home or self-care (01) | DRG 661 ==
LOC: ED 21:52 → 3W 04-21 01:53 → SUATTDRO 04-21 01:53 → 3W 04-21 03:45

== ENCOUNTER 2025-06-10 07:18 | Observation (INO) ==
--- NOTE | 2025-06-10 07:30 | Emergency Department Note ---
Impression & Plan Dizziness, Syncope and collapse ED Provider Note HISTORY OF PRESENT ILLNESS: Patient is a 45-year-old male presenting after syncopal episode. Patient reports that since waking up this morning he has been feeling very lightheaded and dizzy. He reports that he felt so lightheaded that he was going to pass out. He states that he sat down and was feeling slightly improved. He was taking a dose of nystatin before going to work when all of a sudden he did pass out. He denies any chest pain or shortness of breath prior to the episode. No reported seizure-like activity. Patient reports and route to the hospital, he was still feeling slightly lightheaded. He denies any DVT or PE history. He is not on any anticoagulation or antiplatelet therapies. He reports that he has had some increasing shortness of breath since yesterday and had a nonproductive cough all day yesterday. Denies any recent travel. Denies any recent sick contact exposures. Denies any notable fevers. ROS: as above PHYSICAL EXAM: Constitutional: Patient appears in no acute distress. HENT: Head: Normocephalic and atraumatic. Eyes: EOMI, PERRL Mouth/Throat: Mucous membranes moist. Neck: Trachea midline. Neck supple. Cardiovascular: RRR, No murmurs, rubs or gallops. Intact distal pulses. Pulmonary/Chest: No respiratory distress. Breath sounds clear and equal bilaterally. No wheezes or rales. Abdominal: Abdomen soft, no tenderness, rebound or guarding. Musculoskeletal: No edema, tenderness or deformity noted. Skin: Warm and dry. No rash, erythema, pallor or cyanosis Psychiatric: Appropriate mood and affect for situation. Neurological: Alert and keenly responsive. CN II-XII grossly intact, moving all extremities equally and fully. MDM: - Vitals signs stable. - History obtained via patient. History as above. - Chronic conditions affecting care: Anxiety - Differential diagnoses include, but are not limited to: ACS; PE; CVA; intracranial hemorrhage; dysrhythmia; dehydration; electrolyte abnormality; viral syndrome; pneumonia - Order placed for continuous cardiac monitoring. At this time, monitor showed rate of 82 bpm with normal sinus rhythm, per my interpretation. - External medical records reviewed. - EKG image interpreted by myself showed normal sinus rhythm. Rate 94 bpm. QT 344. No acute ischemic changes. - Laboratory workup interpreted by myself showed normal WBC; normal PT/INR; negative D-dimer; normal troponin; elevated total bilirubin (1.7) with normal AST/ALT; normal lipase; normal TSH; elevated anion gap (12) - CXR image reviewed by myself is new for pneumonia, per my interpretation. - COVID/flu/RSV negative - CT head wo contrast negative for acute intracranial pathology - Patient given 1 L normal saline and orthostatic vital signs were then obtained. Patient did become orthostatic and lightheaded. An additional 1 L normal saline was ordered. However, on reassessment at 12 PM, the patient is still complaining of feeling very lightheaded and dizzy. When he got up to go to the bathroom with nursing staff he was stumbling and very unsteady on his feet. - Unclear etiology for his symptoms at this time. He reports he is still dizzy and lightheaded and feels like he is going to pass out. He had a negative D- dimer, so CT PE was not obtained. Will admit to hospitalist service for further evaluation and management, especially given his persistent dizziness in the setting of syncope earlier today. - Discussion was had with telephonic nurse case manager about patient's case and need for admission - Hospitalist consulted for admission - Patient admitted to [facility] hospitalist service for further evaluation and management. ASSESSMENT AND PLAN: Diagnosis: dizziness; syncope and collapse Plan: admit Past Med/Surg History Problem List (Updated 06/10/25 @ 12:16 by María Gross MD) Syncope and collapse (Acute) Dizziness (Acute) Tinnitus, bilateral Tremor Seizure Vitamin D deficiency Hydronephrosis with renal and ureteral calculus obstruction (Acute) Left nephrolithiasis Appendicitis Medical History Learning disability Depression with anxiety Tremor Infection of tooth History of nephrolithiasis History of seizures as a child No pertinent family history Surgical History S/P cystoscopy with ureteral stent placement (2022) Social History Smoking Status: Never smoker Second Hand Exposure: No; Do You Dip or Chew Tobacco: No; Hx Alcohol Use: No Hx Substance Use: No Preferred Language: Grenadian Communication Ability: Effective Animal Breeder Required: No Beliefs That Will Affect Care: None Current Living Situation: Alone Feels Safe at Home: Yes Assistive Devices: None Allergies Allergies Allergy/AdvReac Type Severity Reaction Status Date / Time Penicillins Allergy Intermediate hives Verified 06/10/25 10:06 Home Meds Home Medications Medication Instructions Recorded Confirmed loratadine 10 mg tablet (Claritin) 10 mg PO DAILY 04/28/25 06/10/25 escitalopram oxalate 10 mg tablet 10 mg PO DAILY 06/10/25 06/10/25 omeprazole 40 mg capsule,delayed 40 mg PO DAILY 06/10/25 06/10/25 release Previous Rx's Medication Instructions Recorded nystatin 100,000 unit/mL oral 500,000 unit (5 mL) PO QID 10 days 06/07/25 suspension #200 mL Results & Data (ED) Vital Signs Vital Signs - 24 hr 06/10/25 07:38 06/10/25 07:38 06/10/25 07:38 Temperature 37.0 C 37.0 C Temperature Source Oral Oral Pulse Rate - Lying Pulse Rate - Sitting Pulse Rate - Standing Pulse Rate 93 H Pulse Rate from SpO2 Sensor Respiratory Rate 19 Blood Pressure - Lying Blood Pressure - Sitting Blood Pressure- Standing Blood Pressure 116/88 Blood Pressure Mean 97 Pulse Oximetry 97 Oxygen Delivery Method Room Air Room Air Sepsis Recent Fever Within 48 Hours No Sepsis New/Unexplained Change in Mental Status No Sepsis Action Taken by Nursing No Action Required 06/10/25 07:50 06/10/25 08:26 06/10/25 08:31 Temperature Temperature Source Pulse Rate - Lying 94 H Pulse Rate - Sitting 102 H Pulse Rate - Standing 119 H Pulse Rate 94 H 93 H Pulse Rate from SpO2 Sensor Respiratory Rate 20 Blood Pressure - Lying 135/74 Blood Pressure - Sitting 142/92 H Blood Pressure- Standing 122/81 Blood Pressure Blood Pressure Mean Pulse Oximetry 96 Oxygen Delivery Method Room Air Sepsis Recent Fever Within 48 Hours Sepsis New/Unexplained Change in Mental Status Sepsis Action Taken by Nursing 06/10/25 09:00 06/10/25 10:30 06/10/25 11:00 Temperature Temperature Source Pulse Rate - Lying Pulse Rate - Sitting Pulse Rate - Standing Pulse Rate 89 86 87 Pulse Rate from SpO2 Sensor 89 87 88 Respiratory Rate 16 18 14 Blood Pressure - Lying Blood Pressure - Sitting Blood Pressure- Standing Blood Pressure 117/81 133/75 144/83 H Blood Pressure Mean 97 103 108 Pulse Oximetry 97 98 98 Oxygen Delivery Method Room Air Room Air Room Air Sepsis Recent Fever Within 48 Hours Sepsis New/Unexplained Change in Mental Status Sepsis Action Taken by Nursing 06/10/25 11:30 06/10/25 12:00 Temperature Temperature Source Pulse Rate - Lying 92 H Pulse Rate - Sitting 108 H Pulse Rate - Standing 114 H Pulse Rate 82 Pulse Rate from SpO2 Sensor Respiratory Rate 15 Blood Pressure - Lying 129/77 Blood Pressure - Sitting 129/82 Blood Pressure- Standing 118/86 Blood Pressure 132/85 Blood Pressure Mean 97 Pulse Oximetry 97 Oxygen Delivery Method Room Air Sepsis Recent Fever Within 48 Hours Sepsis New/Unexplained Change in Mental Status Sepsis Action Taken by Nursing Laboratory Data 06/10/25 07:30 06/10/25 07:30 Lab Results 06/10/25 Range/Units 07:30 WBC 5.69 (4.8-10.8) K/ul RBC 5.36 (4.70-6.10) M/uL Hgb 17.8 (14.0-18.0) g/dl Hct 49.3 (42.0-52.0) % MCV 92.0 (80.0-100.0) fL MCH 33.2 (25.0-34.0) pg MCHC 36.1 H (32.0-36.0) g/dL RDW Std Deviation 39.8 (36.4-46.3) fL RDW Coeff of Darlin 11.9 (11.5-14.5) % Plt Count 195 (130-400) K/uL MPV 8.9 L (9.4-12.4) fL Immature Gran % (Auto) 0.4 % Neut % (Auto) 56.7 % Lymph % (Auto) 36.7 % Tyrrell % (Auto) 5.4 % Eos % (Auto) 0.4 % Baso % (Auto) 0.4 % Neut # (Auto) 3.23 (1.40-6.50) K/uL Lymph # (Auto) 2.09 (1.20-3.40) K/uL Tyrrell # (Auto) 0.31 (0.11-0.59) K/uL Eos # (Auto) 0.02 (0.00-0.50) K/uL Baso # (Auto) 0.02 (0.00-0.20) K/uL Immature Gran # (Auto) 0.02 (0.01-0.20) K/uL PT 11.4 (9.0-12.0) Seconds INR 1.1 (0.9-1.1) D-Dimer 340 (0-500) ug/L FEU Sodium 137 (136-145) mmol/L Potassium 3.5 (3.5-5.1) mmol/L Chloride 99 (98-107) mmol/L Carbon Dioxide 26 (21-32) mmol/L Anion Gap 12 H (3-11) BUN 11 (6-23) mg/dl Creatinine 0.92 (0.6-1.4) mg/dl Est Cr Clr Drug Dosing 99.1 ml/min eGFR 105.19 BUN/Creatinine Ratio 12.0 (10-20) Glucose 99 (70-99(Fasting)) mg/dl Calcium 9.5 (8.6-10.3) mg/dl Magnesium 1.8 (1.7-2.4) mg/dl Total Bilirubin 1.7 H (0.2-1.0) mg/dl AST 19 (13-39) U/L ALT 18 (7-52) U/L Alkaline Phosphatase 109 H (34-104) U/L Troponin I High Sens 5.9 (0-20) pg/ml Total Protein 7.7 (6.0-8.3) gm/dl Albumin 4.7 (3.4-5.0) gm/dl Globulin 3.0 (2.5-4.0) gm/dl Albumin/Globulin Ratio 1.6 (0.9-2) Lipase 40 (11-82) U/L TSH 0.759 (0.300-4.500) uIu/ml SARS-CoV-2 (PCR) NEGATIVE (Negative) Influenza Type A (PCR) Negative (Neg) Influenza Type B (PCR) Negative (Neg) RSV (RT-PCR) Negative (Neg) Administered Medications Discontinued Medications Sodium Chloride (Nss) 1,000 mls @ 999 mls/hr IV .Q1H1M ONE Stop: 06/10/25 08:55 Last Infusion: 06/10/25 10:25 Dose: Infused Documented By: Admin: 06/10/25 07:58 Dose: 999 mls/hr Documented By: SERGEY Sodium Chloride (Nss) 1,000 mls @ 999 mls/hr IV .Q1H1M ONE Stop: 06/10/25 09:53 Last Infusion: 06/10/25 11:09 Dose: Infused Documented By: Admin: 06/10/25 09:57 Dose: 999 mls/hr Documented By: MAGDA Imaging Data Radiologist's Impression: Chest X-Ray 06/10/25 07:26 EXAM: XR chest 1V portable CLINICAL HISTORY: syncope; dizziness TECHNIQUE: An X-ray image of the chest is obtained in AP projection. COMPARISON: CRX dated 02/27/2025 FINDINGS: Pulmonary Parenchyma: Lungs are clear bilaterally. No evidence of consolidation, collapse, or focal opacities. No pulmonary nodules are identified. No evidence of pleural effusion or pleural thickening. Heart and Mediastinum: Heart size and shape are normal. No mediastinal widening or masses. No hilar or mediastinal lymphadenopathy. Bony Thorax: Bony thorax appears intact without fractures or deformities. Soft Tissues: Soft tissues overlying the chest wall are unremarkable. IMPRESSION: 1. No acute cardiopulmonary abnormalities are identified. 2. No evidence of consolidation , pneumothorax or pleural effusion. 3. No interval changes Electronically signed by Vikas Ernst 06-10-2025 08:[address] 06/10/25 09:15 CT SCAN OF THE BRAIN WITHOUT IV CONTRAST CLINICAL HISTORY: Dizziness COMPARISON STUDY: MRI of the brain dated 03/24/2009 TECHNIQUE: Unenhanced axial CT scan of the brain is performed from the vertex to the skull base. Images are reviewed in the axial, sagittal, and coronal planes. A dose lowering technique was utilized adhering to the principles of ALARA. CT DOSE: 625.8 mGy.cm FINDINGS: Brain parenchyma: The brain parenchyma is normal in appearance. There is no hemorrhage, mass effect, or evidence of acute territorial ischemia by CT criteria. Nation-white matter differentiation is preserved. No extra-axial fluid collection is seen. Ventricles, sulci, cisterns: Normal in configuration. Intracranial vasculature: The visualized intracranial vasculature at the skull base is normal in appearance. Calvarium: Unremarkable. Sinuses and mastoids: There is trace mucosal thickening within the maxillary sinuses. Maxillary sinus retention cysts measure up to 2 cm. There is trace mucosal thickening within the ethmoid sinuses and the right sphenoid sinus. The mastoid air cells are well pneumatized. Orbits: The bony orbits are grossly intact. IMPRESSION: There is no hemorrhage, mass effect, or evidence of acute territorial ischemia by CT criteria. ACT 112: Negative or not required by law. Electronically signed by: Hector Martínez M.D. 06/10/2025 9:52 AM Discharge Plan Visit Data Chief Complaint: Syncope ED Provider: María Gross Discharge Problem: Dizziness, Syncope and collapse Condition: Fair Forms Stand Alone Forms: [facility] Prescriptions Prescriptions: No Action loratadine [Claritin] 10 mg tablet 10 mg PO DAILY nystatin 100,000 unit/mL suspension 500,000 unit PO QID 10 Days Qty: 200 0RF Rx Instructions: Start Date 06/08/25 x 10 day supply. Administer 1/2 of dose in each side of the mouth omeprazole 40 mg capsule,delayed release(DR/EC) 40 mg PO DAILY escitalopram oxalate 10 mg tablet 10 mg PO DAILY Referrals Referrals: Crystal Koch [Primary Care Provider] -
[2025-06-10 07:52] LABS: Hematocrit (blood only) 49.3 % (42.0-52.0); Hemoglobin 17.8 g/dl (14.0-18.0); Immature Granulocytes # (auto) 0.02 K/uL (0.01-0.20); Immature Granulocytes % (auto) 0.4 %; Mean Corpuscular Hemoglobin 33.2 pg (25.0-34.0); Mean Corpuscular Volume 92.0 fL (80.0-100.0); Platelet Count 195 K/uL (130-400); RDW Standard Deviation 39.8 fL (36.4-46.3); Red Blood Count 5.36 M/uL (4.70-6.10); White Blood Count 5.69 K/ul (4.8-10.8)
[2025-06-10] MEDS: SODIUM CHLORIDE 0.9% 1,000 ML IV ONE ×3 (07:58→18:15)
[2025-06-10 08:07] LABS: Alanine Aminotransferase 18.0 U/L (7-52); Albumin Globulin Ratio 1.6 (0.9-2); Alkaline Phosphatase 109.0 U/L (34-104); Anion Gap 12.0 (3-11); Bilirubin,Total 1.7 mg/dl (0.2-1.0); Blood Urea Nitrogen 11.0 mg/dl (6-23); Calcium 9.5 mg/dl (8.6-10.3); Carbon Dioxide 26.0 mmol/L (21-32); Chloride 99.0 mmol/L (98-107); Creatinine Clr Calc Pharmacy 99.1 ml/min; Globulin 3.0 gm/dl (2.5-4.0); Glucose 99.0 mg/dl (70-99(Fasting)); Lipase 40.0 U/L (11-82); Magnesium 1.8 mg/dl (1.7-2.4); Potassium 3.5 mmol/L (3.5-5.1); Sodium 137.0 mmol/L (136-145); Total Protein 7.7 gm/dl (6.0-8.3)
--- NOTE | 2025-06-10 08:17 | XRay Report ---
EXAM: XR chest 1V portable CLINICAL HISTORY: syncope; dizziness TECHNIQUE: An X-ray image of the chest is obtained in AP projection. COMPARISON: CRX dated 02/27/2025 FINDINGS: Pulmonary Parenchyma: Lungs are clear bilaterally. No evidence of consolidation, collapse, or focal opacities. No pulmonary nodules are identified. No evidence of pleural effusion or pleural thickening. Heart and Mediastinum: Heart size and shape are normal. No mediastinal widening or masses. No hilar or mediastinal lymphadenopathy. Bony Thorax: Bony thorax appears intact without fractures or deformities. Soft Tissues: Soft tissues overlying the chest wall are unremarkable. IMPRESSION: 1. No acute cardiopulmonary abnormalities are identified. 2. No evidence of consolidation , pneumothorax or pleural effusion. 3. No interval changes Electronically signed by Vikas Ernst 06-10-2025 08:17 AM
[2025-06-10 08:20] LABS: INR 1.1 (0.9-1.1); Prothrombin Time 11.4 Seconds (9.0-12.0)
[2025-06-10 08:22] LABS: Thyroid Stimulating Hormone 0.759 uIu/ml (0.300-4.500)
[2025-06-10 08:31] LABS: Influenza A virus by PCR Negative (Neg); Influenza B virus by PCR Negative (Neg); SARS CoV2 RNA(COVID-19) Ceph NEGATIVE (Negative)
--- NOTE | 2025-06-10 09:53 | CT Scan Report ---
CT SCAN OF THE BRAIN WITHOUT IV CONTRAST CLINICAL HISTORY: Dizziness COMPARISON STUDY: MRI of the brain dated 03/24/2009 TECHNIQUE: Unenhanced axial CT scan of the brain is performed from the vertex to the skull base. Imag es are reviewed in the axial, sagittal, and coronal planes. A dose lowering technique was utilized a dhering to the principles of ALARA. CT DOSE: 625.8 mGy.cm FINDINGS: Brain parenchyma: The brain parenchyma is normal in appearance. There is no hemorrhage, mass effect, or evidence of acute territorial ischemia by CT criteria. Nation-white matter differentiation is preser sheila. No extra-axial fluid collection is seen. Ventricles, sulci, cisterns: Normal in configuration. Intracranial vasculature: The visualized intracranial vasculature at the skull base is normal in appe arance. Calvarium: Unremarkable. Sinuses and mastoids: There is trace mucosal thickening within the maxillary sinuses. Maxillary sinus retention cysts measure up to 2 cm. There is trace mucosal thickening within the ethmoid sinuses and the right sphenoid sinus. The mastoid air cells are well pneumatized. Orbits: The bony orbits are grossly intact. IMPRESSION: There is no hemorrhage, mass effect, or evidence of acute territorial ischemia by CT toya edwards. ACT 112: Negative or not required by law. Electronically signed by: Hector Martínez M.D. 06/10/2025 9:52 AM
--- NOTE | 2025-06-10 13:05 | History & Physical Report ---
Date of Service June 10, 2025 Assessment & Plan (1) Syncope and collapse: (2) Abnormal weight loss: (3) Orthostatic hypotension: Plan 45 y/o who came to ED with syncopal episode. Since this morning has felt very lightheaded. Had a presyncopal episode that improved a little with sitting down. Then had a syncopal episode. His ED evaluation was unrevealing except he appeared dehydrated, was in persistent sinus tachycardia, remained symptomatically orthostatic with lightheadedness and standing HR of 120 so admitted for observation. Potentially a viral syndrome - diarrhea this am, dehydration, some recent cough. Obtained resp Biofire panel which was negative and monospot which was negative. Seems that thrush and pharyngitis symptoms resolved. -2L IV saline given in ED, will give additional liter bolus. Had not urinated after 2L and appears dehydrated -follow up UA which is pending -monitor HR on med/tele -orthostatic VS Sinus tachycardia - as above, TSH was normal, check AM cortisol Recent thrush seems resolved stop nystatin Unintentional weight loss - enquire about living situation - independent but wonder about food intake/access since his mother a year ago. Could also be related to depression, or an undiagnosed physiologic cause. Tremor - monitor, seems like intention tremor Anxiety and Depression - will consult [facility] for counseling suggestions and follow up. I'm not sure whether he's actually taking the escitalopram DVT ppx - low risk, SCD/ambulate History of Present Illness Chief Complaint: lightheadedness, syncope Primary Care Provider: Crystal Koch 45 y/o who came to ED with syncopal episode. Since this morning has felt very lightheaded. Had a presyncopal episode that improved a little with sitting down. Then had a syncopal episode. His ED evaluation was unrevealing except he appeared dehydrated, was in persistent sinus tachycardia, remained symptomatically orthostatic with lightheadedness and standing HR of 120 so admitted for observation. History is somewhat scattered but he had a few episodes of diarrhea without abdominal pain or N/V this morning. Recently multiple urgent care and ED visits for ENT type complaints - dental pain / abscess, tinnitus, and recently sore throat. He endorses mild CATHOLIC PRIEST cough, lightheadedness (not vertigo). Says he's lost multiple family members this year including his mother a year ago. He's lost a lot of weight unintentionally in the past year - greater than 100 pounds. Tremor especially RUE which seems worse recently I reviewed previous charts and imaging: Normal EGD 12/16 done for heartburn, also seen 12/16 by ENT for tinnitus treated for cerumen impaction Neck CT 02/27 with contrast - multiple dental caries but no abscess, sinus cysts, no acute neck processes 04/28 seen in urgent care seen for burning in mouth and throat treated for thrush with nystatin, ddx included reflux and is on omeprazole 05/08 also seen in urgent care for pharyngitis. thought to be viral or seasonal allergies. Treated with flonase and zyrtec. 06/07 urgent care visit for 5 days of sore throat. Did not improve so started taking nystatin for possible thrush related to flonase. Had been taking zyrtec as well. Allergies Allergy/AdvReac Type Severity Reaction Status Date / Time Penicillins Allergy Intermediate hives Verified 06/10/25 10:06 Home Medications Medication Instructions Recorded Confirmed Type loratadine 10 mg tablet (Claritin) 10 mg PO DAILY 04/28/25 06/10/25 History nystatin 100,000 unit/mL oral 500,000 unit (5 mL) PO QID 10 days 06/07/25 06/10/25 Rx suspension #200 mL escitalopram oxalate 10 mg tablet 10 mg PO DAILY 06/10/25 06/10/25 History omeprazole 40 mg capsule,delayed 40 mg PO DAILY 06/10/25 06/10/25 History release Past Med/Surg History Problem List (Updated 06/10/25 @ 18:19 by Georgia Sethi MD) Orthostatic hypotension Abnormal weight loss Syncope and collapse (Acute) Dizziness (Acute) Tinnitus, bilateral Tremor Seizure Vitamin D deficiency Hydronephrosis with renal and ureteral calculus obstruction (Acute) Left nephrolithiasis Appendicitis Medical History Learning disability "mild" able to read and write, lives alone, has supports coordinator Depression with anxiety states lost his mom to cancer, 3 friends, and his dog, and is not on meds- states he was on meds in past that caused his heart to race Tremor of hands and neck, states he does not know the cause other than he is getting older Infection of tooth completed abx last week, was at dentist today - had exam/tooth cleaning, no infection noted, sees dentist at [facility] History of nephrolithiasis History of seizures as a child states has not had seizures since he was 12-14 years old, no longer follows with a neurologist No pertinent family history Surgical History S/P cystoscopy with ureteral stent placement (2022) Social History Smoking Status: Never smoker Second Hand Exposure: No; Do You Dip or Chew Tobacco: No; Tobacco Cessation Education Requested by Patient: No Hx Alcohol Use: Yes Alcohol type: beer and wine Hx Substance Use: No Preferred Language: Iraqi Communication Ability: Effective Hearing Aid Assistant Required: No Beliefs That Will Affect Care: None Current Living Situation: Alone Other Information That Helps Us Care for You: No Feels Safe at Home: Yes Safety Concerns: Feels Safe At This Time Assistive Devices: None Review of Systems Review of Systems: All systems reviewed & are unremarkable except as noted in HPI & below Physical Exam Physical Exam: Last 24h vitals reviewed GEN: no acute distress, sitting in ED on [facility] HEENT: pupils equal, sclerae anicteric, moist MM, no thrush visible no cervical or SC LAD RESP: normal WOB, CTAB. CV: mildly tachycardic, reg no mrg ABD: soft/nt/nd +BT : no elias SKIN: warm and dry, no generalized rashes NEURO: AOx person, place, and situation. Basic level of health knowledge. Intention tremor R hand>>L. Some intraosseus wasting. Face symmetric, speech normal, moves 4 ext spontaneously and equally Results & Data Results & Data Vital Signs (Past 12 Hours) Vital Signs Temp Pulse Resp BP Pulse Ox O2 Del Method 06/10/25 12:00 82 15 132/85 97 Room Air 06/10/25 11:00 87 14 144/83 H 98 Room Air 06/10/25 10:30 86 18 133/75 98 Room Air 06/10/25 09:00 89 16 117/81 97 Room Air 06/10/25 08:26 93 H 06/10/25 07:50 94 H 20 96 Room Air 06/10/25 07:38 37.0 C 06/10/25 07:38 Room Air 06/10/25 07:38 37.0 C 93 H 19 116/88 97 Room Air Laboratory Results Reviewed CBC, CMP, PT and PTT, lipase - these are normal excepting mildly elevated bilirubin at 1.7, not elevated in the past Flu/RSV/COVID swab negative Head CT - mild sinus thickening, no acute changes EKG - personally interpreted the tracing which is normal CXR - personally reviewed the film which is clear and appears normal PG Care Time/CCT Total # of Minutes Spent Total Time Spent with Patient: Total time spent is greater than 50% in coordination of care (as documented) at patient's floor/unit and/or counseling patient: Coding Level of Care Code 94644 INT INP/OBS CARE 255MIN Diagnoses Syncope and collapse R55 Abnormal weight loss R63.4 Orthostatic hypotension I95.1
[2025-06-10 15:02] LABS: Chlamydia pneumoniae PCR Not Detected (NotDetected); Coronavirus 229E PCR Not Detected (NotDetected); Coronavirus CoV-2 (COVID19)PCR Not Detected (NotDetected); Coronavirus HKU1 PCR Not Detected (NotDetected); Coronavirus NL63 PCR Not Detected (NotDetected); Coronavirus OC43PCR Not Detected (NotDetected); Human Metapneumovirus PCR Not Detected (NotDetected); Parainfluenza Virus 1 PCR Not Detected (NotDetected); Parainfluenza Virus 2 PCR Not Detected (NotDetected); Parainfluenza Virus 3 PCR Not Detected (NotDetected); Parainfluenza Virus 4 PCR Not Detected (NotDetected); Respiratory Syncytial VirusPCR Not Detected (NotDetected); Rhinovirus/Enterovirus PCR Not Detected (NotDetected)
[2025-06-10] MEDS ORDERED: ACETAMINOPHEN 325 MG TAB PO PRN (16:30)
[2025-06-10] MEDS ORDERED: ALUMINUM/MAGNESIUM SUSP 30 ML UDC PO PRN (16:30)
[2025-06-10] MEDS ORDERED: MAGNESIUM HYDROXIDE SUSP 30 ML UDC PO PRN (16:30)
[2025-06-10] MEDS ORDERED: MELATONIN 3 MG TAB PO PRN (16:30)
[2025-06-10] MEDS ORDERED: ONDANSETRON INJ 2 MG/ML 2 ML VIAL IV PRN (16:30)
[2025-06-10] MEDS ORDERED: POLYETHYLENE (MIRALAX) 17 GM PACK PO PRN (16:30)
[2025-06-10 16:45] VITALS: RESP 18
[2025-06-10] MEDS: SODIUM CHLORIDE 0.9% 1,000 ML IV SCH (16:56)
[2025-06-10] MEDS: NYSTATIN SUSP 500,000 U/5 ML UDC PO SCH (17:47)
[2025-06-10 20:32] LABS: Appearance Urine Clear (Clear); Bacteria Urine Automated None Seen (None Seen); Epithelial Cell Urine Auto 0-2 /hpf (0-2); Glucose Urine UA Negative (Negative); WBC Urine Automated 0-5 /hpf (0-5)
[2025-06-10] MEDS ORDERED: Nursing to Pharmacy Communication SCH (20:45)
[2025-06-10] MEDS: ESCITALOPRAM OXALATE 10 MG TAB PO SCH (22:01)
[2025-06-11 07:23] VITALS: TEMP 97.7; O2SAT 99
[2025-06-11] MEDS: TAMSULOSIN HCL 0.4 MG CAP PO SCH (08:12)
[2025-06-11] MEDS ORDERED: ESCITALOPRAM OXALATE 10 MG TAB PO SCH (09:00)
[2025-06-11] MEDS: OPTIRAY 320 100ml IV ONE (11:34)
--- NOTE | 2025-06-11 12:43 | CT Scan Report ---
CT SCAN OF THE ABDOMEN AND PELVIS WITH IV CONTRAST CLINICAL HISTORY: Abnormal weight loss. Urinary retention. COMPARISON STUDY: Abdominal CT dated 04/20/2023 TECHNIQUE: Following the IV administration of 94 cc of Optiray 320, CT scan of the abdomen and pelvi s is performed from the lung bases to the proximal femora. Images are reviewed in the axial, sagittal , and coronal planes. IV contrast was administered without complication. Oral contrast was utilized. A dose lowering technique was utilized adhering to the principles of ALARA. FINDINGS: Lung bases: The heart is normal in size and without pericardial effusion. The lung bases are clear. Liver: The contrast-enhanced liver is normal in size, contour, and attenuation. There is no intrahepa tic biliary ductal dilatation. The hepatic veins and portal veins are patent. Fatty infiltration is s een adjacent to the falciform ligament. Gallbladder: Unremarkable. Spleen: Normal in size and attenuation. Pancreas: Unremarkable. Adrenal glands: Unremarkable. Kidneys: The contrast enhanced kidneys are normal in size and without hydronephrosis. The kidneys enh ance symmetrically. A 12 mm cyst containing a tiny calcification arising in the left lower pole is un changed from 2022. 11 mm cyst arises from the right lower pole. Additional subcentimeter cortical hyp odensities also likely represent cysts but are too small for definitive characterization. Abdominal vasculature: The abdominal aorta is normal in course and caliber. Bowel: There is no bowel obstruction. Enteric contrast reaches the distal small bowel. The appendix i s not identified and reported surgically absent. Peritoneum: There is no intraperitoneal free air or abdominal ascites. Lymphadenopathy: None. Pelvic viscera: The prostate gland is mildly enlarged and heterogeneous. The bladder is normal as kulwant ged. Skeletal structures: No lytic or blastic lesions are seen. There is mild lumbar scoliosis. IMPRESSION: No acute infectious or inflammatory findings are identified in the abdomen or pelvis. ACT 112: Negative or not required by law. Electronically signed by: Hector Martínez M.D. 06/11/2025 12:42 PM
--- NOTE | 2025-06-11 13:46 | CT Scan Report ---
CHEST CT WITH CONTRAST CT DOSE: 1130.07 mGy.cm HISTORY: unintentional weight loss, cough TECHNIQUE: Multiaxial CT images of the chest were performed following the IV administration of 90 cc of Optiray. A dose lowering technique was utilized adhering to the principles of ALARA. COMPARISON STUDY: None FINDINGS: There is a tiny calcified granuloma posterior left lower lobe. No significant pulmonary nod ule seen. No pulmonary consolidation or pleural effusion. No enlarged adenopathy. No pericardial effu moraima. No acute osseous findings. IMPRESSION: No significant finding seen. ACT 112: Negative or not required by law. Electronically signed by: Mauro Tony M.D. 06/11/2025 1:45 PM
[2025-06-11 14:21] VITALS: BP 124/80; PULSE 85
--- NOTE | 2025-06-11 19:14 | Discharge Summary ---
Discharge Summary Date of Service June 11, 2025 Principal Dx & Hospital Course #1 = Principal Diagnosis (1) Syncope and collapse: (2) Abnormal weight loss: (3) Orthostatic hypotension: Plan 45 y/o who came to ED with syncopal episode. Since this morning has felt very lightheaded. Had a presyncopal episode that improved a little with sitting down. Then had a syncopal episode. His ED evaluation was unrevealing except he ap peared dehydrated, was in persistent sinus tachycardia, remained symptomatically orthostatic with lightheadedness and standing HR of 120 so admitted for observation. Syncope was caused by hypovolemia/dehydration leading to orthostatic hypotension. No arrhythmias on monitoring and EKG normal. Potentially a viral syndrome - diarrhea this am, dehydration, some recent cough. Obtained resp Biofire panel which was negative and monospot which was negative. Seems that previous thrush and pharyngitis symptoms resolved. Tachycardia/orthostasis resolved after total 3L IV crystalloid. Remained stable overnight and felt much better. TSH and AM cortisol were normal. He did have some urinary retention overnight, UA from a cath specimen negative for infection some RBCs but probably from elias trauma. He does have hx nephrolithiasis, obtained CT abdomen/pelvis no stones obstruction or other abnormalities. Prostate is enlarged on CT c/w BPH. He is able to void spontaneously. Started flomax. Because of the unintentional weight loss (45# over two years), above symptoms, I ordered CT chest/abdomen/pelvis which was fortunately without any remarkable findings. Had EGD recently but probably deserves a colonoscopy sooner than later - deferred to outpatient setting. I think he may eat/drink poorly since he is living on his own and his mother a year ago. Counseled on appropriate hydration Tremor - bilateral R>L - monitor, seems like intention tremor and benign, provided reassurance Anxiety and Depression - consulted [facility] for counseling suggestions and follow up, resources were provided. Taking the escitalopram x 2 months, he prefers to follow up with PCP, consider dose increase. Admission HPI Per Admitting Provider 45 y/o who came to ED with syncopal episode. Since this morning has felt very lightheaded. Had a presyncopal episode that improved a little with sitting down. Then had a syncopal episode. His ED evaluation was unrevealing except he appeared dehydrated, was in persistent sinus tachycardia, remained symptomatically orthostatic with lightheadedness and standing HR of 120 so admitted for observation. History is somewhat scattered but he had a few episodes of diarrhea without abdominal pain or N/V this morning. Recently multiple urgent care and ED visits for ENT type complaints - dental pain / abscess, tinnitus, and recently sore throat. He endorses mild SKIN TANNER cough, lightheadedness (not vertigo). Says he's lost multiple family members this year including his mother a year ago. He's lost a lot of weight unintentionally in the past year - greater than 100 pounds. Tremor especially RUE which seems worse recently I reviewed previous charts and imaging: Normal EGD 12/16 done for heartburn, also seen 12/16 by ENT for tinnitus treated for cerumen impaction Neck CT 02/27 with contrast - multiple dental caries but no abscess, sinus cysts, no acute neck processes 04/28 seen in urgent care seen for burning in mouth and throat treated for thrush with nystatin, ddx included reflux and is on omeprazole 05/08 also seen in urgent care for pharyngitis. thought to be viral or seasonal allergies. Treated with flonase and zyrtec. 06/07 urgent care visit for 5 days of sore throat. Did not improve so started taking nystatin for possible thrush related to flonase. Had been taking zyrtec as well. Discharge Exam Last 24h vitals reviewed GEN: no acute distress, awake on bed very pleasant HEENT: pupils equal, sclerae anicteric, moist MM, no thrush visible no cervical or SC LAD RESP: normal WOB, CTAB. CV: mildly tachycardic, reg no mrg ABD: soft/nt/nd +BT : no elias SKIN: warm and dry, no generalized rashes NEURO: AOx person, place, and situation. Basic level of health knowledge. Intention tremor R hand>>L. No rest tremor. Face symmetric, speech normal, moves 4 ext spontaneously and equally Discharge Plan Discharge Items Patient Disposition: Home - Self-Care Reason For Visit: syncope Discharge Diagnosis: Syncope due to dehydration Condition on Discharge: Fair Activity: Resume your previous activity Non-emergency contact: Primary Care Provider Call non-emergency contact if: you have any medication questions and your symptoms worsen Follow-up/Referrals: Crystal Koch [Primary Care Provider] - 06/23/25 9:25 am Diet: Regular Addtl Attending Provider Instructions: You were evaluated for syncope (passing out). This happened because you were very dehydrated. Symptoms resolved after 3 bags of IV fluid. I am concerned that you're not eating and drinking enough at home. Try to drink at least 2 liters of total fluids a day - that is the same as 64 oz or eight 8 oz cups. We didn't find signs of an infection and CT scan of your chest, abdomen, pelvis was basically normal except your prostate is a little enlarged, which is common for middle aged men. Your weight loss might be related to not eating enough, but there are other tests that can be considered in the outpatient setting. Anxiety and depression can affect your appetite - we provided some counseling resources and keep taking the lexapro (escitalopram). You are having urinary retention and I wonder if that is causing some of the vague symptoms. We started medication called flomax (tamsulosin) to decrease the size of your prostate and help you pee better. Take this medicine at bedtime. Allergy medicines can sometimes cause urinary retention as well. Follow up in primary care for these issues. It was a pleasure taking care of you in the hospital, Goergia Sethi MD Pending Studies at Discharge: No Stand-Alone Forms: My [facility], Smoking Cessation Medications and DC Order Prescriptions: New tamsulosin 0.4 mg Capsule 0.4 mg PO HS Qty: 30 0RF Continued loratadine [Claritin] 10 mg tablet 10 mg PO DAILY omeprazole 40 mg capsule,delayed release(DR/EC) 40 mg PO DAILY escitalopram oxalate 10 mg tablet 10 mg PO DAILY Discontinued nystatin 100,000 unit/mL suspension 500,000 unit PO QID 10 Days Qty: 200 0RF Rx Instructions: Start Date 06/08/25 x 10 day supply. Administer 1/2 of dose in each side of the mouth Discharge Orders: Discharge Order (Routine); Ordered 06/11/25 Ordered By: Georgia Ramirez/Other Patient Handouts: ED Fainting, Uncertain Cause Admission Data Admit Date/Time: 06/10/25 13:14 Attending Provider: Georgia Sethi Admit Provider: Georgia Sethi Primary Care Provider: Crystal Koch Other Providers: Manuel Jacobo Other Interventions: Discharge Summary Assessment (RN) Last Done: 06/11/25 14:20 Hospital Stay Data Consultations 06/10/25 12:25 ED Decision to Admit Stat 06/10/25 22:34 Consult Behavioral Health Liaison Routine Diagnostic Imagining Performed 06/10/25 09:15 CT head/brain wo con Stat 06/11/25 08:37 CT chest diagnostic w con Routine 06/11/25 08:39 CT Abd and Pelvis [CT abd pelvis oral and IV con] Routine Pending Results Patient Have Any Pending Studies at Discharge: No Discharge Instructions Given to Patient (Per Discharging Provider) You were evaluated for syncope (passing out). This happened because you were very dehydrated. Symptoms resolved after 3 bags of IV fluid. I am concerned that you're not eating and drinking enough at home. Try to drink at least 2 liters of total fluids a day - that is the same as 64 oz or eight 8 oz cups. We didn't find signs of an infection and CT scan of your chest, abdomen, pelvis was basically normal except your prostate is a little enlarged, which is common for middle aged men. Your weight loss might be related to not eating enough, but there are other tests that can be considered in the outpatient setting. Anxiety and depression can affect your appetite - we provided some counseling resources and keep taking the lexapro (escitalopram). You are having urinary retention and I wonder if that is causing some of the vague symptoms. We started medication called flomax (tamsulosin) to decrease the size of your prostate and help you pee better. Take this medicine at bedtime. Allergy medicines can sometimes cause urinary retention as well. Follow up in primary care for these issues. It was a pleasure taking care of you in the hospital, Georgia Sethi MD Total Time Total Time Spent Total Time Spent (In Minutes): I personally spent: 45 minutes today on clinical care activities including: reviewing chart notes and vital signs reviewing labs reviewing studies examining and counseling the patient counseling the patient's family by phone writing orders writing prescriptions, discharge instructions documentation Coding Level of Care Code 27341 INP/OBS DISCH >30 MIN Diagnoses Syncope and collapse R55 Abnormal weight loss R63.4 Orthostatic hypotension I95.1
--- NOTE | 2025-06-13 09:06 | Electrocardiogram Report ---
Test Reason : Blood Pressure : */* mmHG Vent. Rate : 94 BPM Atrial Rate : 94 BPM P-R Int : 126 ms QRS Dur : 92 ms QT Int : 344 ms P-R-T Axes : -22 -11 -12 degrees QTcB Int : 430 ms Normal sinus rhythm Normal ECG When compared with ECG of 27-Feb-2025 10:27, Questionable change in QRS axis T wave inversion now evident in Inferior leads Confirmed by Joe Sanchez ([id number]) on 06/13/2025 9:06:05 AM Referred By: REFERRED SELF Confirmed By: Joe Sanchez
== END 2025-06-11 15:24 | disposition home or self-care (01) ==
LOC: ED 07:18 → 3N 07:18